=== PATIENT | male | born 1970 | race Caucasian/White ===

== ENCOUNTER 2017-01-28 10:32 | Inpatient (IN) | payer OTHER ==
[~2017-01-28] VITALS: Ht 165.1 cm; Wt 63.0 kg
[2017-01-28] VITALS (11 sets, daily range): BP systolic 79–120
--- NOTE | 2017-01-28 10:35 | NUR ---
Arrived via BLS ambulance from [facility] for desaturation to 80% on RA after vomiting. SNF staff suspects aspiration. Patient is also noted to have a right femoral central line in place in SNF. Patient is poorly verbal however this is his baseline. Placed in room 3. Placed on monitoring specialist, blood pressure machine and pulse oximeter. To gown for exam. Side rails up. Report given to Sindy MATA.
--- NOTE | 2017-01-28 10:40 | NUR ---
PATIENT NON-VERBAL.BREATHING EVEN AND UNLABORED WITH O2 AT 6L/M VIA NASAL CANNULA;O2 SAT=84%.NO SIGNS AND SYMPTOMS OF PAIN OR DISCOMFORT.NOTED WITH BILATERAL RHONCHI.AFEBRILE
--- NOTE | 2017-01-28 10:41 | NUR ---
ER at bedside examining patient.
[2017-01-28] MEDS ORDERED: IPRATROPIUM/ALBUTEROL SULFATE 3 ML AMPUL.NEB INH ONE (10:45)
[2017-01-28] MEDS ORDERED: methylPREDNISolone SOD SUCC/PF 62.5 MG/ML VIAL IVP ONE (10:45)
[2017-01-28] MEDS ORDERED: PIPERACILLIN/TAZO 3.38 GM in D5W 50 ML IV ONE (10:45)
[2017-01-28] MEDS ORDERED: NS 1000 ML BAG IV ONE (10:45)
[2017-01-28] MEDS ORDERED: PIPERACILLIN/TAZOBACTAM 3.375 GM/VIAL (ZOSYN) IV ONE (11:02)
[2017-01-28 11:22] LABS: CALCIUM 9.1 mg/dL (8.4-11.0); POTASSIUM 5.4 mmol/L (3.5-5.1)
[2017-01-28 11:22] LABS: HEMOGLOBIN 7.9 g/dL (14.0-18.0); LYMPHOCYTES # (AUTO) 1.4 K/uL (1.0-5.5)
[2017-01-28 11:26] LABS: MEAN CORPUSCULAR HEMOGLOBIN 29 pg (27-31); MEAN CORPUSCULAR HGB CONC 33 % (32-36); MEAN CORPUSCULAR VOLUME 88 fL (79.0-98.0); PROTHROMBIN TIME 10.8 SECS (9.5-12.5)
[2017-01-28 11:30] LABS: HEMATOCRIT 23.8 % (36-54); RED CELL DISTRIBUTION WIDTH 15.2 % (9.0-15.0)
[2017-01-28] MEDS ORDERED: ONDANSETRON HCL 4 MG/2 ML VIAL IVP ONE (11:30)
[2017-01-28 11:31] LABS: BASOPHILS # (AUTO) 0.3 K/uL (0.0-0.2); BASOPHILS % (AUTO) 1.5 % (0.0-2.0); EOSINOPHILS # (AUTO) 0.8 K/uL (0.0-0.4); EOSINOPHILS % (AUTO) 4.3 % (0.0-4.0); LYMPHOCYTES % (AUTO) 7.7 % (20.5-51.5); MONOCYTES # (AUTO) 0.6 K/uL (0.0-1.0); MONOCYTES % (AUTO) 3.1 % (1.7-9.3); NEUTROPHILS # (AUTO) 14.9 K/uL (1.8-7.7); NEUTROPHILS % (AUTO) 83.4 % (40.0-70.0); PLATELET COUNT (AUTO) 318 K/uL (130-430)
[2017-01-28 11:31] LABS: ALBUMIN 2.2 g/dL (3.4-4.8); TOTAL BILIRUBIN 0.4 mg/dL (0.0-1.0); TOTAL PROTEIN, SERUM 7.5 g/dL (6.4-8.3)
[2017-01-28] MEDS ORDERED: ONDANSETRON HCL 4 MG/2 ML VIAL ONE (11:37)
--- NOTE | 2017-01-28 11:55 | NUR ---
PATIENT VOMITED;VOMITUS IS YELLOWISH IN COLOR;MODERATE AMOUNT;MD MADE AWARE
--- NOTE | 2017-01-28 12:00 | NUR ---
# 16 FR Orr catheter with use of sterile technique. Immediate return of 150 cc CLOUDY YELLOW urine noted. Bedside drainage bag placed below level of bladder. Urine sample collected and sent to lab. Pt tolerated procedure WELL.
--- NOTE | 2017-01-28 12:25 | NUR ---
RT AT BEDSIDE FOR BREATHING TREATMENT
[2017-01-28 12:58] LABS: BILIRUBIN,URINE NEGATIVE (NEGATIVE); BLOOD, URINE NEGATIVE (NEGATIVE); CLARITY/URINE HAZY (CLEAR); COLOR,URINE YELLOW (YELLOW); GLUCOSE,URINE NEGATIVE (NEGATIVE); KETONES,URINE NEGATIVE (NEGATIVE); LEUKOCYTE ESTERASE ,URINE 1+ (NEGATIVE); NITRITE, URINE NEGATIVE (NEGATIVE); PROTEIN URINE 1+ (NEGATIVE); UROBILINOGEN,URINE 0.2 (0.2-1.0)
--- NOTE | 2017-01-28 13:05 | NUR ---
Transfer to ICU 4 via ACLS protocol. Licensed nurse present. IV present no signs or symptoms of infiltration.
[2017-01-28 13:13] LABS: RBC,URINE 0-3 /HPF (0-3)
[2017-01-28 13:14] LABS: BACTERIA,URINE MANY /HPF (None Seen); FINE GRANULAR CASTS,URINE 0-10 /LPF (None Seen); MUCUS,URINE None Seen /LPF (None Seen)
--- NOTE | 2017-01-28 13:26 | NUR ---
consult for dr. sarmiento called (dr. pimentel mergers and acquisitions consultant) spoke to ailyn dialed [phone] vivas called (dr. da silva mergers and acquisitions consultant) spoke to ailyn dialed [phone]
[2017-01-28] MEDS: NACL 0.9% 1,000 ML IV SCH ×2 (13:37→17:48)
--- NOTE | 2017-01-28 14:00 | NUR ---
assumed care: report given by savita icu nurse.with a diagnoses of septic shock. received patient non responsive,non verbal and no opening of eyes noted.patient snoring. room air,no distress. on panel monitor. ns on going at left forearm intact. with gtube clamped in placed. with russ draining to cloudy yellow urine. with bilateral heel protector on. right groin dressing soaked with blood,no active bleeding noted. continue to monitor per icu protocol.
--- NOTE | 2017-01-28 14:10 | NUR ---
lactic acid: second lactic acid drawn per protocol.
[2017-01-28] MEDS ORDERED: ACETAMINOPHEN 650 MG/20.3 ML UDC GT PRN (14:15)
[2017-01-28] MEDS ORDERED: IPRATROPIUM/ALBUTEROL SULFATE 3 ML AMPUL.NEB INH PRN (14:15)
[2017-01-28] MEDS ORDERED: SODIUM POLYSTYRENE SULFONATE 15 GM/60 ML UDBTL RC ONE (14:15)
--- NOTE | 2017-01-28 14:27 | NUR ---
consult for called (dr. og senior telecommunications engineer) spoke to ailyn dialed [phone]
[2017-01-28] MEDS ORDERED: GLUCOSE 15 GM GEL (in 37.5 GM TUBE) PO PRN ×2 (14:45)
[2017-01-28] MEDS ORDERED: DEXTROSE 50%-WATER 50 ML DISP.SYRIN IVP PRN ×2 (14:45)
[2017-01-28 14:54] LABS: ABG TOTAL HEMOGLOBIN 8.6 G/dL (12.0-18.0); BLOOD GAS BASE EXCESS -2.7 mmol/L (-3.0-3.0); BLOOD GAS COHb% 0.3 % (0.5-1.5); BLOOD GAS HHB 6.1 % (0.0-6.0)
[2017-01-28 15:13] LABS: FREE T4 (FREE THYROXINE) 0.8 ng/dL (0.6-1.6); THYROID STIMULATING HORMONE 5.55 uIu/mL (0.34-4.82)
[2017-01-28] MEDS: IPRATROPIUM/ALBUTEROL SULFATE 3 ML AMPUL.NEB INH SCH ×3 (15:32→23:22)
[2017-01-28] MEDS ORDERED: VANCOMYCIN HCL 1,250 MG in NS 250 ML IV SCH (16:00)
--- NOTE | 2017-01-28 16:09 | NUR ---
CARE NOTES: PATIENT FULLY AWAKE THIS TIME. ABLE TO MOVE LEFT ARM ,PATIENT HARD TO SPEAK.NOT ABLE TO UNDERSTAND.
--- NOTE | 2017-01-28 16:10 | NUR ---
PHOTOS: CLEANSED NS LEFT HEEL,RIGHT ANKLE,SACRAL WOUND.SACRAL AND LEFT HEEL OPTIFOAM APPLIED. PHOTOS TAKEN, ATTACHED TO CHART.WCN TO EVAL PER WOUND PROTOCOL.
[2017-01-28] MEDS ORDERED: COMMUNICATION ORDER XX ONE ×3 (17:45→20:15)
[2017-01-28] MEDS: PIPERACILLIN/TAZO 2.25G/DEX-IS 50 ML IV SCH ×2 (17:55→23:50)
[2017-01-28] MEDS ORDERED: SODIUM POLYSTYRENE SULFONATE 15 GM/60 ML UDBTL GT SCH (18:00)
[2017-01-28] MEDS: INSULIN REGULAR, HUMAN 100 UNITS/ML, 10 ML VIAL (novoLIN R) SUBCUT PRN ×3 (18:04→23:55)
--- NOTE | 2017-01-28 18:50 | NUR ---
rn rounding: time out with piccline nurse done.piccline placement done as ordered. stat potable chest x-ray ordered for piccline placement after.
--- NOTE | 2017-01-28 19:20 | NUR ---
end of shift: endorsed to incoming night nurse,patient awake and oriented x2,with slurred speech. still for abdominal ultrasound.keep patient npo ,hold tube feeds until test is done.stable.
--- NOTE | 2017-01-28 19:30 | NUR ---
Initial Assessment Initial assessment done after report was received from day shift nurse. Pt is awake and oriented to his name only. Speech is garbled. skin is warm and dry to touch. No signs or symptoms of hypoglycemia or hyperglycemia noted. G Tube is clamped and residual zero. G Tube feeding to be started after US of Abdomen is done. Orr cath to gravity drainage noted with clear yellowish urine. No acute distress noted. IVF of NS is infusing well in LFA at 500ml/hr without any signs of infiltration. PICC double lumens noted in MERLE with the dressing dry and intact.
[2017-01-28 19:52] LABS: CALCIUM 8.2 mg/dL (8.4-11.0); CREATININE 2.55 mg/dL (0.55-1.30); POTASSIUM 5.4 mmol/L (3.5-5.1)
--- NOTE | 2017-01-28 20:00 | NUR ---
Abdominal US Being performed at the bedside.
--- NOTE | 2017-01-28 20:21 | NUR ---
Critical Blood Glucose Regular insulin 12 units given SQ as ordered by Dr. Mujica for lab blood glucose of 418. Dr. Mujica was also informed of Critical BUN of 113. stated he will input some orders from home.
[2017-01-28] MEDS: 0.45% NACL 1,000 ML IV SCH (20:32)
--- NOTE | 2017-01-28 20:32 | NUR ---
PICC Line Usage IVF of 1/2 NS was started via MERLE PICC at 150ml/hr utilizing new IV tubing. All old peripheral IV tubings were discarded.
[2017-01-28] MEDS: SODIUM POLYSTYRENE SULFONATE 15 GM/60 ML UDBTL GT SCH (21:00)
--- NOTE | 2017-01-28 21:00 | NUR ---
G Tube Feeding G Tube residual zero. Ultrasound of abdomen already completed. G Tube feeding of NovaSource renal started at 45ml/hr.
[2017-01-28] MEDS: LACTOBACILLUS RHAMNOSUS GG 1 CAP CAPSULE GT SCH (21:12)
[2017-01-28] MEDS: HEPARIN SODIUM,PORCINE 5000 UNITS/ML VIAL SUBCUT SCH (21:13)
[2017-01-28] MEDS: LACTULOSE 20 GM/30 ML UDC GT SCH (21:16)
[2017-01-28 21:37] LABS: CHLORIDE,URINE RANDOM 41 mmol/L (55-125)
--- NOTE | 2017-01-28 22:00 | NUR ---
Rounds Resting comfortably in bed and tolerating GTF. Turned and repositioned.
[2017-01-29] VITALS (24 sets, daily range): BP systolic 86–111
--- NOTE | 2017-01-29 | NUR ---
Rounds Condition remains stable. Tolerating GTF well.
--- NOTE | 2017-01-29 02:00 | NUR ---
Rounds GTF and IVF infusing well. No acute distress noted.
[2017-01-29] MEDS: SODIUM POLYSTYRENE SULFONATE 15 GM/60 ML UDBTL GT SCH ×2 (02:29→09:00)
[2017-01-29] MEDS: 0.45% NACL 1,000 ML IV SCH ×4 (03:50→20:00)
--- NOTE | 2017-01-29 04:00 | NUR ---
Rounds Pt is awake and resting comfortably in bed. No acute distress noted. IVF and GT Feeding are infusing well.
[2017-01-29] MEDS: IPRATROPIUM/ALBUTEROL SULFATE 3 ML AMPUL.NEB INH SCH ×6 (04:04→23:17)
--- NOTE | 2017-01-29 05:30 | NUR ---
Wound care/Hygiene Pt had large amount of soft and formed brownish stools. Complete bed bath given with complete linen change. Sacral wound was cleansed with normal saline and pat dried. Wound has pinkish and healing areas. Small amount of serous drainage noted. Z guard applied and wound was covered with sacral Optifoam dressing.
[2017-01-29] MEDS: PIPERACILLIN/TAZO 2.25G/DEX-IS 50 ML IV SCH ×3 (05:51→18:08)
[2017-01-29] MEDS: INSULIN REGULAR, HUMAN 100 UNITS/ML, 10 ML VIAL (novoLIN R) SUBCUT PRN ×3 (05:55→11:51)
--- NOTE | 2017-01-29 05:55 | NUR ---
Blood Sugar Accuchecks 521 and 537. Skin remains warm and dry to touch. 12 units Regular Insulin given SQ and Dr. Mujica was paged.
--- NOTE | 2017-01-29 06:02 | NUR ---
New orders given by Dr. Mujica for AM Levemir Insulin.
[2017-01-29] MEDS ORDERED: COMMUNICATION ORDER XX ONE (06:15)
--- NOTE | 2017-01-29 06:35 | NUR ---
Levemir Insulin Order Levemir Insulin order not yet on pt's EMAR. Today's AM Levemir dose was ordered by to be given 30 minutes after 12 units Regular insulin was given for accuchecks of 521 and 537. Called [facility] since order was entered at 0602 and spoke with Riley. Per Riley, [facility] signed off at 0630 and [facility] should be contacted. Called [facility] and spoke with Zachary who stated he would input the order.
[2017-01-29 06:44] LABS: ALBUMIN 1.8 g/dL (3.4-4.8); PHOSPHORUS 4.1 mg/dL (2.7-4.5); POTASSIUM 3.9 mmol/L (3.5-5.1); TOTAL BILIRUBIN 0.4 mg/dL (0.0-1.0); TOTAL PROTEIN, SERUM 6.7 g/dL (6.4-8.3)
[2017-01-29 06:51] LABS: HEMATOCRIT 24.3 % (36-54); MEAN CORPUSCULAR HEMOGLOBIN 30 pg (27-31); MEAN CORPUSCULAR HGB CONC 33 % (32-36); MEAN CORPUSCULAR VOLUME 90 fL (79.0-98.0); PLATELET COUNT (AUTO) 277 K/uL (130-430); RED BLOOD CELL COUNT(AUTO) 2.71 MIL/uL (4.2-6.2); RED CELL DISTRIBUTION WIDTH 14.9 % (9.0-15.0)
--- NOTE | 2017-01-29 07:00 | NUR ---
Closing Note Pt is awake and resting quietly in bed. All pt's needs were attended to. Pt is tolerating GT Feeding well. Will endorse to day shift nurse.
[2017-01-29 07:09] LABS: CREATININE 2.37 mg/dL (0.55-1.30)
--- NOTE | 2017-01-29 07:35 | NUR ---
Charge nurse spoke with Dr. Mujica regarding elevated blood sugar. Orders left.
[2017-01-29 07:58] LABS: ATYPICAL LYMPHOCYTES % 0 % (0-0); BAND % (MANUAL) 4 % (0-6); BASOPHILS % (MANUAL) 0 % (0-2); EOSINOPHILS % (MANUAL) 0 % (0-7); LYMPHOCYTES % (MANUAL) 5 % (20-46); MONOCYTES % (MANUAL) 1 % (0-11)
--- NOTE | 2017-01-29 08:00 | NUR ---
Received pt alert and unable to make needs known. Looks around room. ST on monitor rate 120. BP stable. 02 2L NC in use . Lungs diminished bases. HOB up. Tolerating tube feeds via GT. Abd soft with bowel sounds. Left upper arm PICC line in place infusing IVF at 150cc/hr Heel lift boot in place. Pt has a foam dressing to buttocks. Orr cath with jessica urine in abg. Call out to Dr. Cobb regarding insulin coverage. Waiting for call back.
[2017-01-29 08:13] LABS: BLOOD GAS BASE EXCESS -9.7 mmol/L (-3.0-3.0)
[2017-01-29 08:14] LABS: ABG TOTAL HEMOGLOBIN 7.8 G/dL (12.0-18.0); BLOOD GAS COHb% 0.6 % (0.5-1.5); BLOOD GAS HHB 5.1 % (0.0-6.0)
--- NOTE | 2017-01-29 08:20 | NUR ---
Dr. Simmons in to see pt. Orders left. Regular insulin 12 u subcut given as ordered.
[2017-01-29] MEDS ORDERED: INSULIN NPH/REGULAR 70-30, 100 UNITS/ML, 10 ML VIAL SUBCUT SCH (08:30)
[2017-01-29] MEDS ORDERED: DOCUSATE SODIUM 100 MG CAPSULE PO PRN (08:45)
[2017-01-29] MEDS ORDERED: ACETAMINOPHEN 325 MG TABLET PO PRN (08:45)
[2017-01-29] MEDS ORDERED: MAGNESIUM SULFATE 50 ML IV PRN (08:45)
[2017-01-29] MEDS ORDERED: LORazepam 2 MG/ML VIAL IVP PRN (08:45)
[2017-01-29] MEDS ORDERED: ONDANSETRON HCL 4 MG/2 ML VIAL IVP PRN (08:45)
[2017-01-29] MEDS ORDERED: ZOLPIDEM TARTRATE 5 MG TABLET PO PRN (08:45)
[2017-01-29] MEDS: HEPARIN SODIUM,PORCINE 5000 UNITS/ML VIAL SUBCUT SCH ×2 (08:46→21:11)
[2017-01-29] MEDS: LACTULOSE 20 GM/30 ML UDC GT SCH ×2 (08:49→21:22)
[2017-01-29] MEDS: LACTOBACILLUS RHAMNOSUS GG 1 CAP CAPSULE GT SCH ×2 (08:51→21:22)
--- NOTE | 2017-01-29 09:01 | NUR ---
Nutrition Update Ritchie Scale 12 noted. Pt admitted for septic shock. Diet: Novasource Renal at 45 ml/hr, Free Water Flush: 100 ML Q6H via GT BMI: 23 kg/m2 RD to follow per nutrition care standards.
--- NOTE | 2017-01-29 09:13 | NUR ---
Pt having liquid brown stool x 3 in a row. Complete linen changed. All insulin given that was ordered by Dr. Cobb. Stool for c-diff sent.
[2017-01-29] MEDS ORDERED: ASPI81TA2 GT (10:03)
[2017-01-29] MEDS ORDERED: NA P118E RC (10:03)
[2017-01-29] MEDS ORDERED: MULT9LIQ6 GT (10:03)
[2017-01-29] MEDS ORDERED: LISI10TA GT (10:03)
[2017-01-29] MEDS ORDERED: HYDR-1115 GT (10:03)
[2017-01-29] MEDS ORDERED: INSU100V32 SUBCUT (10:03)
[2017-01-29] MEDS ORDERED: LEVO50TA8 GT (10:03)
[2017-01-29] MEDS ORDERED: AMLO5TAB4 GT (10:03)
[2017-01-29] MEDS ORDERED: DULR10 RC (10:03)
[2017-01-29] MEDS ORDERED: HYDR-1189 GT (10:03)
[2017-01-29] MEDS ORDERED: GLYB5TAB7 GT (10:03)
[2017-01-29] MEDS ORDERED: LIP80 GT (10:03)
[2017-01-29] MEDS ORDERED: ASCO500T20 GT (10:03)
[2017-01-29] MEDS ORDERED: INSU100V11 SQ (10:03)
[2017-01-29] MEDS ORDERED: MAGN400O4 GT (10:03)
[2017-01-29] MEDS ORDERED: METO25TA6 GT (10:03)
--- NOTE | 2017-01-29 11:37 | NUR ---
Dr. Cardenas in to see pt. Orders left. Made aware of accu check 507. Call out to Dr. Cobb. Pts mom at bedside and plan of care discussed with her.
--- NOTE | 2017-01-29 11:50 | NUR ---
Pt had another large liquid brown stool. Fidelina care done.
[2017-01-29] MEDS: metroNIDAZOLE 250 MG TABLET PO SCH ×3 (12:07→21:22)
--- NOTE | 2017-01-29 12:15 | NUR ---
Flagyl given via GT and GT occluded. Attempted to clear tube with soda and warm water unsuccessfully.
--- NOTE | 2017-01-29 12:30 | NUR ---
Dr Cobb notified of accu check 500 range. Endocrine consult ordered.
--- NOTE | 2017-01-29 13:00 | NUR ---
CHG CHG BATH GIVEN. VITALS REMAINED STABLE, 02 SAT 100% ON 2 L NC, NO SIGNS OF DISTRESS NOTED. PT LEFT WITH HOB ELEVATED, CALL LIGHT IN REACH, BED IN LOWEST POSITION. WILL CONTINUE TO MONITOR PT.
--- NOTE | 2017-01-29 13:30 | NUR ---
Mom at bedside. Plan of care update given.
[2017-01-29] MEDS ORDERED: INSULIN REGULAR, HUMAN 100 UNITS in NS 99 ML IV PRN ×4 (14:00→14:45)
--- NOTE | 2017-01-29 14:15 | NUR ---
Dr. Carranza and Dr. Vincent have declined endocrine consults. Will notifiy Dr. Cobb. Call out to Dr Lerner.
--- NOTE | 2017-01-29 14:40 | NUR ---
SPoke with Dr Lerner and she will do the consult but cannot come in until tomorrow. Report given. Orders left for insulin drip and labs.
[2017-01-29] MEDS ORDERED: DEXTROSE 50% JECT 50 ML DISP.SYRIN IVP PRN (14:45)
[2017-01-29] MEDS: INSULIN REGULAR, HUMAN 100 UNITS in NS 99 ML IV PRN ×2 (14:45)
--- NOTE | 2017-01-29 14:50 | NUR ---
Insulin drip started at 10 units/hr as ordered for accu check 507.
--- NOTE | 2017-01-29 16:00 | NUR ---
Insulin drip at 12 units/hr for accucheck above 400. Will continue to monitor pt. No N/V. BP stable. Remains tachypnic and with an elevated HR. No resp distress.
[2017-01-29 17:25] LABS: CALCIUM 8.1 mg/dL (8.4-11.0); CREATININE 2.69 mg/dL (0.55-1.30)
[2017-01-29 17:33] LABS: POTASSIUM 2.9 mmol/L (3.5-5.1)
--- NOTE | 2017-01-29 17:45 | NUR ---
Dr. Lerner made aware of K 2.9. Dr. Aguero in to see pt and to leave orders for K replacement.
[2017-01-29] MEDS ORDERED: KCL 40 mEq in 100 mL (PREMIX) 100 ML IV ONE (18:00)
[2017-01-29 18:10] LABS: PHOSPHORUS 2.6 mg/dL (2.7-4.5)
--- NOTE | 2017-01-29 18:15 | NUR ---
Wound care done to coccyx. Foam dressing applied. Pt sitting with HOB up afterwards and noted to be coughing. Nothing to suction in mouth with adelaidaur. Afebrile. HR remains elevated.
--- NOTE | 2017-01-29 20:00 | NUR ---
OPENS EYES SPON. ABLE TO FOCUS. ON O2 AT 2L/MIN. DENIES PAIN. POX 100%. TACHYPNEIC. EXTREMITIES CONTRACTED. WEN CATH PATENT DRAINING OLIGURIC CLOUDY YELLOW URINE. ST. GT FEEDING OFF, GT CLOGGED. LEFT UPPER ARM PICC LINE DRSG D/I. ON INSULIN DRIP AT 12 UNITS/HR. CONTACT ISOLATION OBSERVED. TURNED.
--- NOTE | 2017-01-29 20:15 | NUR ---
Report given to oncoming shift. K rider running.
--- NOTE | 2017-01-29 21:00 | NUR ---
ACCU-CHEK 297, INSULIN DRIP AT 6 UNITS/HR. HS CARE.
--- NOTE | 2017-01-29 21:30 | NUR ---
ABLE TO UNCLOG GT, GT FEEDING RESTARTED WITH NOVASOURCE RENAL AT 45CC/HR.
--- NOTE | 2017-01-29 22:00 | NUR ---
ACCU-CHEK 312, INSULIN DRIP AT 8 UNITS/HR. REPOSITIONED.
--- NOTE | 2017-01-29 23:00 | NUR ---
ACCU-CHEK 285, INSULIN DRIP AT 6 UNITS/HR.
[2017-01-30] VITALS (24 sets, daily range): BP systolic 92–155
--- NOTE | 2017-01-30 | NUR ---
RESIDUAL CHECK 0. ACCU-CHEK 281, INSULIN DRIP AT 6 UNITS/HR. UO OLIGURIC.
[2017-01-30] MEDS: PIPERACILLIN/TAZO 2.25G/DEX-IS 50 ML IV SCH ×2 (00:04→05:04)
[2017-01-30] MEDS: INSULIN REGULAR, HUMAN 100 UNITS in NS 99 ML IV PRN ×2 (00:36)
--- NOTE | 2017-01-30 01:00 | NUR ---
ACCU-CHEK 277, INSULIN DRIP AT 6 UNITS/HR.
--- NOTE | 2017-01-30 02:00 | NUR ---
ACCU-CHEK 290, INSULIN DRIP AT 6 UNITS/HR.
[2017-01-30] MEDS: 0.45% NACL 1,000 ML IV SCH (02:45)
--- NOTE | 2017-01-30 03:00 | NUR ---
ACCU-CHEK 260, INSULIN DRIP AT 6 UNITS/HR.
--- NOTE | 2017-01-30 04:00 | NUR ---
DOZES ON AND OFF. ACCU-CHEK 290, INSULIN DRIP AT 4 UNITS/HR. RESIDUAL CHECK 0. TURNED.
[2017-01-30] MEDS: IPRATROPIUM/ALBUTEROL SULFATE 3 ML AMPUL.NEB INH SCH ×6 (04:01→23:26)
--- NOTE | 2017-01-30 05:00 | NUR ---
1 MOD GELATINOUS STOOL DEFECATED, NARA-CARE RENDERED. PARTIAL LINEN CHANGE. AM CARE. DOES NOT ASSIST WITH TURNING. NEETU PROC WELL. ACCU-CHEK 273, INSULIN DRIP AT 6 UNITS/HR.
[2017-01-30] MEDS: metroNIDAZOLE 250 MG TABLET PO SCH (05:59)
--- NOTE | 2017-01-30 06:00 | NUR ---
ACCU-CHEK 275, INSULIN DRIP AT 6 UNITS/HR. TURNED. UO GOOD. REMAINS IN GUARDED CONDITION.
[2017-01-30 06:06] LABS: T4 (THYROXINE) 4.9 ug/dL (4.5-12.0)
[2017-01-30 06:27] LABS: CALCIUM 8.1 mg/dL (8.4-11.0); CREATININE 2.41 mg/dL (0.55-1.30); POTASSIUM 3.1 mmol/L (3.5-5.1)
[2017-01-30 06:30] LABS: MONOCYTES # (AUTO) 0.5 K/uL (0.0-1.0); MONOCYTES % (AUTO) 3.2 % (1.7-9.3); WHITE BLOOD COUNT (AUTO) 14.9 K/uL (4.8-10.8)
[2017-01-30 06:41] LABS: BASOPHILS % (AUTO) 0.3 % (0.0-2.0); EOSINOPHILS # (AUTO) 0.1 K/uL (0.0-0.4); LYMPHOCYTES % (AUTO) 6.8 % (20.5-51.5); MEAN CORPUSCULAR HEMOGLOBIN 29 pg (27-31); MEAN CORPUSCULAR HGB CONC 32 % (32-36); MEAN CORPUSCULAR VOLUME 89 fL (79.0-98.0); NEUTROPHILS # (AUTO) 13.3 K/uL (1.8-7.7); NEUTROPHILS % (AUTO) 88.7 % (40.0-70.0); PLATELET COUNT (AUTO) 259 K/uL (130-430); RED BLOOD CELL COUNT(AUTO) 2.34 MIL/uL (4.2-6.2); RED CELL DISTRIBUTION WIDTH 15.2 % (9.0-15.0)
--- NOTE | 2017-01-30 06:50 | NUR ---
DR SWANSON NOTIFIED OF H/H 6.7/ 20.9, ORDERED TO TRANSFUSE 2 UNITS PRBC. ACCU-CHEK 277, INSULIN DRIP LEFT AT 6 UNITS/HR.
[2017-01-30 06:51] LABS: HEMOGLOBIN 6.7 g/dL (14.0-18.0)
[2017-01-30 06:52] LABS: HEMATOCRIT 20.9 % (36-54)
--- NOTE | 2017-01-30 07:15 | NUR ---
ASSUMPTION OF CARE RECEIVED REPORT FROM ADOLFO DIAZ. PT IN BED WITH EYES CLOSED. VITAL SIGNS STABLE, O2 100% ON 2L NC. SINUS TACHYCARDIA ON MONITOR. NO SIGNS OF DISTRESS NOTED. NOVASOURCE RENAL TUBE FEEDING AT 45 ML/HR THROUGH GT. INSULIN DRIP AT 6 UNITS/HR PER INSULIN DRIP PROTOCOL. WILL CONTINUE TO MONITOR PT.
--- NOTE | 2017-01-30 08:00 | NUR ---
PT VOMITING RT BEGAN BREATHING TREATMENT, PT BEGAN TO VOMIT MODERATE AMOUNT OF LIQUID THAT LOOKED LIKE TUBE FEEDING. TUBE FEEDING PUT ON HOLD. HOB ELEVATED. O2 SAT REMAINS 100% ON 2 L NC. WILL CONTINUE TO MONITOR.
[2017-01-30] MEDS: LACTOBACILLUS RHAMNOSUS GG 1 CAP CAPSULE GT SCH ×3 (08:17→21:37)
[2017-01-30] MEDS: POTASSIUM CHLORIDE 10 MEQ TAB.PRT.SR PO PRN (08:18)
--- NOTE | 2017-01-30 08:18 | NUR ---
ZOFRAN PT GIVEN ZOFRAN 4MG IVP FOR N/V. WILL MONITOR FOR PT RESPONSE.
[2017-01-30] MEDS: LACTULOSE 20 GM/30 ML UDC GT SCH ×2 (08:21→21:37)
[2017-01-30] MEDS: HEPARIN SODIUM,PORCINE 5000 UNITS/ML VIAL SUBCUT SCH ×2 (08:21→21:50)
[2017-01-30] MEDS ORDERED: POTASSIUM CHLORIDE 40 MEQ, LIDOCAINE JECT 2% PF 100 MG 50 MG in NS 250 ML IV ONE (08:45)
[2017-01-30] MEDS: VANCOMYCIN HCL 125 MG CAPSULE PO SCH ×4 (09:00→21:56)
--- NOTE | 2017-01-30 09:00 | NUR ---
NGT. ATTEMPTED TO INSERT NGT TO EITHER SIDE OF NARIS, BUT WITH RESISTANCE. PT DIAPHORETIC, COUGHING MOSTLY DURING NURSING CARE.
[2017-01-30 09:01] LABS: AMYLASE 29 U/L (0-100); LIPASE 204 U/L (73-393)
--- NOTE | 2017-01-30 10:22 | NUR ---
BLOOD TRANSFUSION INITIATION Consent signed per TELEPHONE CALL TO PT'S MOTHER, DEAN agreeing to administration of blood. Blood has been type and crossmatched. Blood sent from blood bank. Information on unit of blood checked against patient wristband at bedside by two nurses. All information matches. Patient or responsible alliance party informed of potential complications associated with blood transfusion. Informed of possible transfusion reaction symptoms. Aware of need to notify nurse at once of itching, shortness of breath, flushing, feeling of impending doom, or other symptoms not previously present. Vital signs taken within 5 minutes prior to initiation of transfusion. VITAL SIGNS ON INITIATION FOLLOWS: TEMPERATURE 98.5F, HR 110, RESPIRATIONS 35, BP 107/51. RN will remain with patient for first 15 minutes of transfusion at which time vital signs will be re-assessed. Addendum: 01/30/17 at 1428 by Sondra Sosa RN INITIATED AT 100 ML/HR.
--- NOTE | 2017-01-30 10:37 | NUR ---
BLOOD TRANSFUSION CURRENT VITAL SIGNS FOLLOWS: TEMPERATURE 99.2 F, HR 111, RESPIRATIONS 38, BP 95/46. 02 SAT 100% ON 2 L NC. NO SIGNS OF DISTRESS NOTED. WILL CONTINUE TO MONITOR PT THROUGHOUT ENTIRETY OF BLOOD TRANSFUSION.
--- NOTE | 2017-01-30 13:00 | NUR ---
HERE DR ARTEAGA HERE TO EVALUATE PT. NEW ORDERS RECEIVED FOR MANAGEMENT OF PT'S BLOOD GLUCOSE.
--- NOTE | 2017-01-30 13:32 | NUR ---
BLOOD TRANSFUSION SECOND UNIT OF PRBC INITIATION. Consent signed per TELEPHONE CALL TO PT'S MOTHER DEAN agreeing to administration of blood. Blood has been type and crossmatched. Blood sent from blood bank. Information on unit of blood checked against patient wristband at bedside by two nurses. All information matches. Patient or responsible democrat informed of potential complications associated with blood transfusion. Informed of possible transfusion reaction symptoms. Aware of need to notify nurse at once of itching, shortness of breath, flushing, feeling of impending doom, or other symptoms not previously present. CURRENT VITALS UPON INITIATION: TEMPERATURE 99.3F, HR 109, RESPIRATIONS 32, BP 138/70. RN will remain with patient for first 15 minutes of transfusion at which time vital signs will be re-assessed.
--- NOTE | 2017-01-30 13:47 | NUR ---
BLOOD TRANSFUSION VITALS 15MIN AFTER INITIATION OF SECOND UNIT PRBC FOLLOWS: TEMP 99.3F, HR 108, RESPIRATIONS 31, BP 130/70. NO SIGNS OF DISTRESS OR A REACTION NOTED. PT'S MOTHER IS AT BEDSIDE. WILL CONTINUE TO MONITOR PT THROUGHOUT ADMINISTRATION OF BLOOD PRODUCT.
--- NOTE | 2017-01-30 14:30 | NUR ---
SKIN CARE. WOUND CARE NURSE CAME AND EVALUATED SKIN PROBLEMS ON RIGHT EAR, SACRAL AREA, LOWER EXTREMITIES. SKIN TREATMENT FOLLOWED.
--- NOTE | 2017-01-30 14:30 | NUR ---
WOUND EVALUATION: Late note for 1430 secondary to patient care. Wound Consult received from Dr. Mujica. Thank you, Dr. Mujica, for the consult. Patient received in a [place] Bed with a mattress, awake, alert, and oriented. Patient is unable to turn independently. Ritchie Score is a 12. 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 Recent Labs: WBC 8.2, RBC 3.67, hemoglobin 11.1, hematocrit 33.5, potassium 2.8, chloride 97, albumin 2.0, d-dimer 782. Intrinsic factors that delay wound healing: Diabetes mellitus. Extrinsic factors that delay wound healing: Decreased mobility. Microbiology: Blood culture 2 in progress. MRSA screen results negative. Body fluid culture in progress. Scar tissue present on sacral, buttocks, right heel, and right lateral malleolus areas. Wound Assessment: 1) left sacral area: Stage II pressure ulcer, present on admission. Wound bed is 100% red tissue. No odor, scant sanguineous drainage. Measures 1.4 cm x 1.5 cm. 2) left sacral area, medial to wound 1): Small wound, present on admission. Wound bed is 100% pink tissue. No odor, no drainage. Measures 0.3 cm x 0.3 cm. 3) sacral area: Pressure ulcer, present on admission. Wound bed is 70% pink tissue, 30% yellow tissue. No odor, no drainage. Measures 1.2 cm x 0.4 cm x 0.2 cm. Recommend: Cleanse wounds with normal saline. Put moisture barrier cream onto christina-wounds. Put hydrogel onto wound beds. Cover with sacral foam dressing. Perform wound care daily, and as needed for dressing soiling or dislodgment. 4) left lateral lower extremity: Chronic wound, present on admission. Wound bed is 90% yellow eschar, 10% black eschar. Dry, stable. Measures 5.0 cm x 2.2 cm. Recommend: Cover site with a foam dressing. Offload site at all times so that it does not touch bed, other body parts, or any other areas. 5) left heel: Chronic unstageable pressure ulcer, present on admission. Wound bed is 95% black eschar, 5% yellow slough. No odor, no drainage. Dry, stable. Periwound and surrounding tissue have red and pink colored tissue. Recommend: Cover heel with foam dressing. Elevate, offload and flow bilateral heels with pillows at all times. Do not allow heels to come in touch with bed or other surfaces at any time. 6) Right ear: Chronic wound, present on admission. Wound bed is 100% black eschar. No odor, no drainage. Measures 0.3 cm x 0.3 cm. 7) Right ear, inferior to site 6): Chronic wound, present on admission. Wound bed is 100% black eschar. No odor, no drainage. Measures 0.4 cm x 0.4 cm. Recommend: Cover sites with a foam dressing. Offload ear at all times so that ear does not touch bed, pillow, body parts, or any other areas. 8) left lateral malleolus: Dark colored spot, present on admission. No odor, no drainage. 9) left foot, lateral border, posterior to fifth metatarsal head: Chronic wound, present on admission. Wound bed is 100% black eschar. No odor, no drainage. Dry, stable. Measures 1.0 cm x 0.5 cm. Recommend: Cover sites with a foam dressing. Offload sites at all times so that they do not touch bed, other body parts, or any other areas. 10) right lower buttock: Hard skin colored keloid, present on admission. No odor, no drainage. Recommend: Reposition patient [id number] only every 2 hours. Also recommend: Reposition patient every 2 hours with pillow support and off-load pressure areas with pillows for pressure re-distribution. Offload, elevate and float bilateral heels with pillows. Perform skin care and monitor skin integrity Q shift. Use moisture barrier cream on buttocks and other moisture susceptible areas QID and as needed for soiling. Place patient on a low air-loss mattress. Recommend surgical consult.
[2017-01-30] MEDS: D5/0.45 NS 1,000 ML IV SCH (14:39)
[2017-01-30] MEDS: metroNIDAZOLE 250 mg/NS 50 ML IV SCH ×2 (14:39→21:51)
--- NOTE | 2017-01-30 15:00 | NUR ---
STOOL SAMPLE. PT HAD MODERATE AMOUNT OF LIGHT YELLOWISH JELL- LIKE BOWEL MOVEMENT, HYGIENE RENDERED. SAMPLE COLLECTED AND SENT TO LAB FOR OCCULT BLOOD TEST.
--- NOTE | 2017-01-30 16:27 | NUR ---
BLOOD TRANSFUSION SECOND UNIT PRBC TRANSFUSION COMPLETED. VITAL SIGNS AT END OF TRANSFUSION FOLLOWS: TEMP 98.3 F, HR 114, RESPIRATIONS 30, BP 142/70. NO SIGNS OF DISTRESS OR REACTION WERE OBSERVED THROUGHOUT THE TRANSFUSION. WILL CONTINUE TO MONITOR PT.
[2017-01-30] MEDS ORDERED: GASTROGRAFIN 120 ML ONE (16:45)
[2017-01-30] MEDS: INSULIN ASPART 100 UNITS/ML, 10 ML VIAL (NovoLOG) SUBCUT PRN ×2 (17:14→22:08)
--- NOTE | 2017-01-30 17:30 | NUR ---
TEST. RADIOLOGY STAFF HERE, GASTROGRAFFIN DYE INJECTED INTO GTUBE PORT.
--- NOTE | 2017-01-30 19:32 | NUR ---
ENDORSEMENT OF CARE BEDSIDE REPORT GIVEN TO ADOLFO DIAZ USING SBAR APPROACH.
--- NOTE | 2017-01-30 20:00 | NUR ---
AWAKE. 0N O2 AT 2L/MIN/NC. KUB , GT IN STOMACH. GT FEEDING WITH NOVASOURCE RENAL STARTED AT 45CC/HR. WEN CATH PATENT DRAINING CLOUDY YELLOW URINE TO GRAVITY. MERLE PICC LINE DRSG D/I. ST. 1 LARGE SOFT WATERY BROWN STOOL DEFECATED. CLEANED. PER-CARE. PARTIAL LINEN CHANGE DONE. DOES NOT ASSIST WITH TURNING. PARTIAL LINEN CHANGE. NEETU WELL. CONTACT ISOLATION OBSERVED.
--- NOTE | 2017-01-30 21:00 | NUR ---
ACCU-CHEK 248, 2 UNITS NOVOLOG INSULIN SQ GIVEN.
[2017-01-30] MEDS: LINEZOLID 300 ML IV SCH (21:38)
--- NOTE | 2017-01-30 22:00 | NUR ---
HS CARE. TURNED AND REPOSITIONED.
[2017-01-31] VITALS (21 sets, daily range): BP systolic 108–159
--- NOTE | 2017-01-31 | NUR ---
1 LARGE WATERY BROWN STOOL DEFECATED. CLEANED. NARA-CARE DONE. CHG BATH GIVEN. ORAL CARE RENDERED. WEN CARE, BACK CARE AND SKIN CARE DONE. Z-GUARD APPLIED TO PERINEUM. PARTIAL LINEN CHANGE. DOES NOT ASSIST WITH TURNING. NEETU PROC WELL. RESIDUAL CHEK 50CC. GT FLUSHED WITH 100CC H2O.
--- NOTE | 2017-01-31 01:00 | NUR ---
ACCU-CHEK 295, 4 UNITS NOVOLOG INSULIN SQ GIVEN.
[2017-01-31] MEDS: INSULIN ASPART 100 UNITS/ML, 10 ML VIAL (NovoLOG) SUBCUT PRN ×4 (01:16→21:17)
[2017-01-31] MEDS: D5/0.45 NS 1,000 ML IV SCH ×2 (01:38→18:30)
--- NOTE | 2017-01-31 04:00 | NUR ---
RESIDUAL 10CC. VSS. TURNED.
[2017-01-31] MEDS: IPRATROPIUM/ALBUTEROL SULFATE 3 ML AMPUL.NEB INH SCH ×5 (04:11→20:02)
--- NOTE | 2017-01-31 05:00 | NUR ---
1 LARGE WATERY BROWN STOOL DEFECATED, NARA-CARE. SKIN CARE, BACK CARE, WEN CARE GIVEN. PARTIAL LINEN CHANGE. DOES NOT ASSIST WITH TURNING. NEETU WELL. SUCTIONED MOUTH WITH YANKAUER. ACCU-CHEK 263, 4 UNITS NOVOLOG INSULIN SQ GIVEN.
[2017-01-31] MEDS: metroNIDAZOLE 250 mg/NS 50 ML IV SCH ×3 (05:16→23:00)
--- NOTE | 2017-01-31 06:00 | NUR ---
UO GOOD. GT FLUSHED WITH 100CC H2O. REPOSITIONED. REMAINS IN GUARDED CONDITION.
[2017-01-31 06:24] LABS: BASOPHILS % (AUTO) 0.3 % (0.0-2.0); EOSINOPHILS # (AUTO) 1.1 K/uL (0.0-0.4); EOSINOPHILS % (AUTO) 8.5 % (0.0-4.0); HEMATOCRIT 35.7 % (36-54); HEMOGLOBIN 11.9 g/dL (14.0-18.0); LYMPHOCYTES % (AUTO) 7.4 % (20.5-51.5); MEAN CORPUSCULAR HEMOGLOBIN 29 pg (27-31); MEAN CORPUSCULAR HGB CONC 33 % (32-36); MEAN CORPUSCULAR VOLUME 88 fL (79.0-98.0); MONOCYTES # (AUTO) 0.6 K/uL (0.0-1.0); MONOCYTES % (AUTO) 4.3 % (1.7-9.3); NEUTROPHILS # (AUTO) 10.4 K/uL (1.8-7.7); NEUTROPHILS % (AUTO) 79.5 % (40.0-70.0); PLATELET COUNT (AUTO) 258 K/uL (130-430); RED BLOOD CELL COUNT(AUTO) 4.06 MIL/uL (4.2-6.2); RED CELL DISTRIBUTION WIDTH 14.4 % (9.0-15.0); WHITE BLOOD COUNT (AUTO) 13.1 K/uL (4.8-10.8)
[2017-01-31 06:37] LABS: CALCIUM 8.3 mg/dL (8.4-11.0); CREATININE 1.45 mg/dL (0.55-1.30); POTASSIUM 3.3 mmol/L (3.5-5.1)
--- NOTE | 2017-01-31 07:45 | NUR ---
BEGINNING OF SHIFT ASSESSMENT Received patient eyes open, alert x 1, name only, slow to respond, communicated with nurse using simple, one word responses. Clear lung sounds heard through out. Patient on 2L NC, tolerating well. The patient remains sinus tach on monitor, HR 110 at this time. He is receiving D51/2NS at the rate of 100mls/hr to right upper arm PICC, patent, flushing with positive blood return, dressing clean,dry and intact. Gtube placement verified via auscultation, 10 cc of residual noted. Orr draining to gravity, clear, yellow urine noted. No signs of distress, vss, sob, chills, chest pain per patient, none noted at this time. Bed in locked, lowest position, call light within easy reach, upper side rails x 2 up. Patient on contact isolation precautions related to c-diff infection. Will continue to monitor closely.
[2017-01-31 08:05] LABS: CALCIUM 8.2 mg/dL (8.4-11.0); CREATININE 1.35 mg/dL (0.55-1.30); POTASSIUM 3.5 mmol/L (3.5-5.1)
--- NOTE | 2017-01-31 08:45 | NUR ---
ROUNDING Dr. RED MARK at bedside examining patient, updated on condition. Received new orders.
--- NOTE | 2017-01-31 08:50 | NUR ---
IV FLUID RATE CHANGE Per Dr. Cardenas orders, IVF rate changed to 60 mls/hr.
--- NOTE | 2017-01-31 09:00 | NUR ---
MD ROUNDING: Dr. Reza MARK at bedside examining patient, updated on patient condition. Continue to follow clinical plan.
[2017-01-31] MEDS: LINEZOLID 300 ML IV SCH ×2 (09:03→21:07)
[2017-01-31] MEDS: LACTULOSE 20 GM/30 ML UDC GT SCH ×2 (09:04→21:11)
[2017-01-31] MEDS: LACTOBACILLUS RHAMNOSUS GG 1 CAP CAPSULE GT SCH ×2 (09:04→21:10)
--- NOTE | 2017-01-31 09:10 | NUR ---
Nutrition Note Nutrition Consult (Wounds) received 01/30/17 3934. Pt was seen and assessed by RD on 01/31/17. Please refer to Nutrition Assessment for details. RD to continue to follow per nutrition care standards.
[2017-01-31] MEDS: HEPARIN SODIUM,PORCINE 5000 UNITS/ML VIAL SUBCUT SCH ×2 (09:23→21:18)
[2017-01-31] MEDS: VANCOMYCIN HCL 125 MG CAPSULE PO SCH ×4 (09:24→21:10)
--- NOTE | 2017-01-31 10:45 | NUR ---
ROUNDING DR. Elder MARK at bedside examining patient, updated on patient condition. Continue to follow clinical pathway.
[2017-01-31 11:18] LABS: HEMOGLOBIN A1C 9.9 % (4.8-5.6)
--- NOTE | 2017-01-31 12:00 | NUR ---
PT UPDATE Patient awake, alert, mother at bedside speaking with patient. Patient turned and repositioned. No signs of distress, sob, chills, chest pain per patient, none noted at this time. Will continue to monitor.
--- NOTE | 2017-01-31 12:20 | NUR ---
Glucose Finger stick 298 mg/dl, 4 units of regular insulin given per sliding scale protocol. Addendum: 01/31/17 at 1709 by Jenaro Carrion RN Correction, 4 units of novalog/aspart insulin given as coverage per sliding scale protocol. Medication unable to scan, pharmacy made aware. Patient verified using three identifiers. Second nurse, ADOLFO Callahan verified 4 units of novalog/aspart insulin given.
--- NOTE | 2017-01-31 13:20 | NUR ---
PT CARE: Large BM x 1, loose stool, cleaned, linen changed, turned and repositioned. Patient tolerated well.
--- NOTE | 2017-01-31 15:30 | NUR ---
OCCULT BLOOD SAMPLE Sample collected, sent to lab.
--- NOTE | 2017-01-31 17:05 | NUR ---
PT CARE: Large loose Bm x 1, cleaned, linen changed. Patient turned and repositioned, tolerated well.
--- NOTE | 2017-01-31 17:40 | NUR ---
TRANSFER Patient transferred via gurney using ALCS protocol with two licensed staff present to Tele room 116-A, bedside report given to ADOLFO Yung. All belongings sent with patient. Patient tolerated well, no signs of distress, vss, sob, chest pain, fever or chills per patient, none noted. Endorsed care to ADOLFO Yung.
--- NOTE | 2017-01-31 17:43 | NUR ---
RECEIVED PATIENT TRANSFER FROM ICU, PT STABLE, AWAKE, ABLE TO MAKE NEEDS KNOWN, NO S/S OF DISTRESS OR PAIN, UNDER THE CARE OF DR SWANSON, PT MADE COMFORTABLE, SETTLED IN, CALL LIGHT WITHIN REACH, SAFETY AND ISOLATION PRECAUTIONS IN PLACE, WILL ADMIT PATIENT
--- NOTE | 2017-01-31 19:00 | NUR ---
CLOSING NOTE PT LAYING IN SEMI FOWLERS POSITION, AWAKE, ALERT, NASAL CANULA IN PLACE WITH O2 AT 2L, IV FLUIDS INFUSING MERLE PICC AT ORDERED RATE IV TO LFA INTACT, SALINE LOCKED, GTUBE FEEDING IN PLACE AND INFUSING AT ORDERED RATE, PT TOLERATING WELL, WEN CATHETER IN PLACE AND DRAINING YELLOW URINE TO GRAVITY, DRESSING TO BILATERAL LOWER EXTREMITIES CLEAN DRY AND INTACT, DRESSING TO RIGHT EAR CDI, SAFETY AND ISOLATION PRECAUTIONS MAINTAINED, BED IN LOW POSITION AND LOCKED, BED ALARM ON, CALL LIGHT WITHIN REACH, WILL GIVE REPORT TO FOLLOWING SHIFT
--- NOTE | 2017-01-31 20:00 | NUR ---
Initial Assessment Pt was received lying in bed awake and oriented to his name only. No verbal response noted at this time. No acute distress noted. O2 sat is 100% on O2 at 2L/min via NC. Skin is warm and dry to touch. No signs or symptoms of hypoglycemia or hyperglycemia noted. G Tube Feeding of NovaSource Renal is infusing well at 45ml/hr with residual of 150ml. GT Feeding stopped and residual will be rechecked in 1 hour. HOB is elevated to prevent aspiration. Orr cath to gravity drainage noted with clear yellowish urine. IVF of D51/2NS is infusing well via MERLE PICC at 60ml/hr. PICC dressing is dry and intact. Fall, Safety and Contact Isolation precautions are in place. Will continue to monitor pt.
--- NOTE | 2017-01-31 21:00 | NUR ---
G Tube Residual Recheck G tube residual 25ml and GT Feeding resumed at 45ml/hr. HOB elevated 45 degrees to prevent aspiration.
--- NOTE | 2017-01-31 21:17 | NUR ---
Blood Sugar Accucheck 215 and 2 units NovoLog Insulin given SQ. Skin remains warm and dry to touch.
--- NOTE | 2017-01-31 21:40 | NUR ---
Admin Dilaudid and Zofran Admin Dilaudid prn for pain and Zofran prn for n/v. Will reassess after one hour. Addendum: 02/01/17 at 0304 by Ameya Bernal RN Correction:Charted to wrong patient
--- NOTE | 2017-01-31 22:00 | NUR ---
Rounds Pt is awake and resting quietly in bed. IVF and GTF are infusing well. Pt is tolerating GTF well. HOB remains elevated 45 degrees. No respiratory distress noted.
--- NOTE | 2017-01-31 23:55 | NUR ---
Report Report given to nurse Huo for continuity of pt's nursing care.
--- NOTE | 2017-02-01 | NUR ---
Assume Care Assume care with pt. Pt is awake at this time, non verbal. No s/s of ant pain or distress noted. Noted Picc line to MERLE no infiltrate and with good blood return. G tube is patent, running at 45 cc/hr, residual is 20cc noted. F/C is patent with 100cc clear yellow urine in the bag noted. Noted wound to sacrum, R ear and BLE, all dressings are intact. Call light within reach, will cont to monitor.
[2017-02-01 00:12] VITALS: BP_SYST 134
[2017-02-01] MEDS: INSULIN ASPART 100 UNITS/ML, 10 ML VIAL (NovoLOG) SUBCUT PRN ×4 (01:21→21:33)
--- NOTE | 2017-02-01 01:45 | NUR ---
Admin Dilaudid and Zofran Admin Dilaudid prn for pain and Reglan prn for N/V. Will reassess after one hour. Addendum: 02/01/17 at 0158 by Ameya Bernal RN Correction: Reglan for n/v. Addendum: 02/01/17 at 0304 by Ameya Bernal RN Correction:Charted to wrong patient
--- NOTE | 2017-02-01 03:04 | NUR ---
ECG bath ECG bath rendered. No s/s of any distress noted. Call light within reach, will cont to monitor. Addendum: 02/01/17 at 0647 by Ameya Bernal RN Correction: HCG bath
[2017-02-01 04:00] VITALS: BP_SYST 142
[2017-02-01] MEDS: D5/0.45 NS 1,000 ML IV SCH (05:26)
[2017-02-01] MEDS: metroNIDAZOLE 250 mg/NS 50 ML IV SCH ×3 (05:27→23:39)
[2017-02-01 06:28] LABS: BASOPHILS % (AUTO) 0.1 % (0.0-2.0); EOSINOPHILS # (AUTO) 1.4 K/uL (0.0-0.4); EOSINOPHILS % (AUTO) 9.2 % (0.0-4.0); LYMPHOCYTES # (AUTO) 0.9 K/uL (1.0-5.5); LYMPHOCYTES % (AUTO) 6.1 % (20.5-51.5); MEAN CORPUSCULAR HEMOGLOBIN 30 pg (27-31); MEAN CORPUSCULAR HGB CONC 34 % (32-36); MEAN CORPUSCULAR VOLUME 89 fL (79.0-98.0); MONOCYTES # (AUTO) 0.4 K/uL (0.0-1.0); MONOCYTES % (AUTO) 2.9 % (1.7-9.3); NEUTROPHILS # (AUTO) 12.2 K/uL (1.8-7.7); NEUTROPHILS % (AUTO) 81.7 % (40.0-70.0); PLATELET COUNT (AUTO) 230 K/uL (130-430); RED BLOOD CELL COUNT(AUTO) 3.72 MIL/uL (4.2-6.2); RED CELL DISTRIBUTION WIDTH 14.4 % (9.0-15.0); WHITE BLOOD COUNT (AUTO) 14.9 K/uL (4.8-10.8)
[2017-02-01 06:29] LABS: CALCIUM 7.4 mg/dL (8.4-11.0); CREATININE 1.05 mg/dL (0.55-1.30); POTASSIUM 3.1 mmol/L (3.5-5.1)
--- NOTE | 2017-02-01 06:41 | NUR ---
Final Rounds Patient is resting in bed at this time. No c/o pain or any distress noted. V/S are wnl. All needs met and anticipated by noc nurses. Bed in low position with call light within reach. Will cont to monitor.
[2017-02-01 08:00] VITALS: BP_SYST 150
[2017-02-01] MEDS: LACTULOSE 20 GM/30 ML UDC GT SCH ×2 (09:25→21:19)
[2017-02-01] MEDS: VANCOMYCIN HCL 125 MG CAPSULE PO SCH ×4 (09:26→21:23)
[2017-02-01] MEDS: LACTOBACILLUS RHAMNOSUS GG 1 CAP CAPSULE GT SCH ×2 (09:26→21:19)
[2017-02-01] MEDS: HEPARIN SODIUM,PORCINE 5000 UNITS/ML VIAL SUBCUT SCH ×2 (09:30→21:23)
[2017-02-01] MEDS: LINEZOLID 300 ML IV SCH ×2 (09:41→22:37)
[2017-02-01 12:20] VITALS: BP_SYST 157
[2017-02-01 16:49] VITALS: BP_SYST 146
[2017-02-01 19:30] VITALS: BP_SYST 140
--- NOTE | 2017-02-01 19:30 | NUR ---
notes received the pt from the day nurse,pt awake and follows with eyes but is non verbal and does not follow commandsg tube intact infusing well at45cc/hr.no residual noted.monitor in place and shows st..pt in isolation.russ catheter in place and draining well.iv intact to lt forearm,no redness or swelling noted.o2 via nc at 2l/min. in place.aspiration and fall precautions in place. picc line intact to lt upper arm,no redness or swelling noted.dressings to both lower extremities ,rt ear and coccyx dry and intact.call light within reach safety measures in progress.continue to monitor.
--- NOTE | 2017-02-01 21:30 | NUR ---
notes repositioned with pillow support,accucheck was 264,insulin per s/s given as ordered.g tube residual was 30cc,water 200cc given as ordered.call light within reach .continue to monitor.
--- NOTE | 2017-02-01 23:30 | NUR ---
notes pt incontinent of stool,chg bath given,pt repositioned with pillow support.continue to monitor.
--- NOTE | 2017-02-01 23:30 | NUR ---
notes pt incontinent of moderate liquid stool,pt cleaned and repositioned with pillow support,o2 via mask reapplied to pt.continue to monitor. Addendum: 02/02/17 at 0102 by Eliseo Rogers LVN notes made in error,wrong pt.
[2017-02-01] MEDS: IPRATROPIUM/ALBUTEROL SULFATE 3 ML AMPUL.NEB INH SCH (23:43)
[2017-02-02] VITALS: BP_SYST 140
[2017-02-02] MEDS: INSULIN ASPART 100 UNITS/ML, 10 ML VIAL (NovoLOG) SUBCUT PRN ×3 (00:49→14:20)
--- NOTE | 2017-02-02 01:31 | NUR ---
pt repositioned with pillow support.continue to monitor.
--- NOTE | 2017-02-02 03:31 | NUR ---
notes pt awaken and repositioned with pillow support.hob is up.continue to monitor.
[2017-02-02 04:00] VITALS: BP_SYST 127
[2017-02-02] MEDS: IPRATROPIUM/ALBUTEROL SULFATE 3 ML AMPUL.NEB INH SCH ×8 (04:12→23:31)
--- NOTE | 2017-02-02 04:50 | NUR ---
notes accucheck was 198,no insulin needed per s/s.continue to monitor.
[2017-02-02] MEDS: metroNIDAZOLE 250 mg/NS 50 ML IV SCH ×3 (05:12→22:00)
--- NOTE | 2017-02-02 06:08 | NUR ---
closing notes pt resting with eyes closed.will endorse the care of the pt to the day nurse.
[2017-02-02 06:18] LABS: CREATININE 0.97 mg/dL (0.55-1.30); POTASSIUM 3.2 mmol/L (3.5-5.1)
[2017-02-02 06:27] LABS: BASOPHILS % (AUTO) 0.2 % (0.0-2.0); EOSINOPHILS # (AUTO) 1.2 K/uL (0.0-0.4); EOSINOPHILS % (AUTO) 7.9 % (0.0-4.0); HEMATOCRIT 34.2 % (36-54); HEMOGLOBIN 11.2 g/dL (14.0-18.0); LYMPHOCYTES # (AUTO) 1.1 K/uL (1.0-5.5); LYMPHOCYTES % (AUTO) 7.3 % (20.5-51.5); MEAN CORPUSCULAR HEMOGLOBIN 29 pg (27-31); MEAN CORPUSCULAR HGB CONC 33 % (32-36); MEAN CORPUSCULAR VOLUME 89 fL (79.0-98.0); MONOCYTES # (AUTO) 0.5 K/uL (0.0-1.0); MONOCYTES % (AUTO) 3.7 % (1.7-9.3); NEUTROPHILS # (AUTO) 11.8 K/uL (1.8-7.7); NEUTROPHILS % (AUTO) 80.9 % (40.0-70.0); PLATELET COUNT (AUTO) 241 K/uL (130-430); RED BLOOD CELL COUNT(AUTO) 3.84 MIL/uL (4.2-6.2); RED CELL DISTRIBUTION WIDTH 14.4 % (9.0-15.0); WHITE BLOOD COUNT (AUTO) 14.6 K/uL (4.8-10.8)
[2017-02-02 08:00] VITALS: BP_SYST 138
--- NOTE | 2017-02-02 08:00 | NUR ---
OPENING NOTE RECEIVED REPORT FROM ELECTRO MECHANICAL DESIGNER NURSE. PATIENT RESTING COMFORTABLY, NON-VERBAL. NO NOTABLE SIGNS OF DISTRESS AT THIS THIS TIME. PAIN ASSESSED PER GRAY-ZAMAN SCALE. PATIENTS TUBE FEEDS ARE RUNNING PER MD ORDERS, IV RUNNING PER MD ORDERS. PATIENT HAS PICC LINE TO LEFT UPPER ARM. PATIENT POSITIONED WITH PILLOW SUPPORT AND ON A WINSTON MATTRESS. PATIENT HAS BED ALARM APPLIED, SIDE RAILS IN LOWEST POSITION, CALL LIGHT WITHIN REACH, AND BED IN LOWEST POSITION FOR SAFETY. WILL CONTINUE TO MONITOR PATIENT FOR CHANGES IN STATUS. Addendum: 02/02/17 at 1135 by Emily Cyr RN BED IN LOWEST POSITION, SIDE RAILS ARE UP FOR SAFETY. MISTYPE.
[2017-02-02] MEDS: LACTULOSE 20 GM/30 ML UDC GT SCH ×2 (09:00→20:52)
--- NOTE | 2017-02-02 10:04 | NUR ---
DISCHARGE PLANNING Faxed SNF referral to [phone]. will follow up. Addendum: 02/02/17 at 1458 by Yamileth Topete DP Spoke with Karely in admitting at [facility], facility accepted patient back and will have ISO bed available for patient discharge. Note left for weekend CM to follow up. contracted ambulance [facility] . Placed transportation packet in nurse station.
[2017-02-02] MEDS: VANCOMYCIN HCL 125 MG CAPSULE PO SCH ×4 (10:13→20:52)
[2017-02-02] MEDS: LINEZOLID 300 ML IV SCH ×2 (10:13→20:53)
[2017-02-02] MEDS: LACTOBACILLUS RHAMNOSUS GG 1 CAP CAPSULE GT SCH ×2 (10:13→20:52)
[2017-02-02] MEDS: D5/0.45 NS 1,000 ML IV SCH ×2 (10:17→10:37)
--- NOTE | 2017-02-02 10:30 | NUR ---
1000 NOTE PATIENT RESTING COMFORTABLY. NO NOTABLE SIGNS OF DISTRESS AT THIS THIS TIME. PAIN ASSESSED PER GRAY-ZAMAN SCALE. PATIENTS TUBE FEEDS ARE RUNNING PER MD ORDERS, TUBING WAS CHANGED FOR TUBE FEEDING. IV RUNNING PER MD ORDERS. PATIENT HAS PICC LINE TO LEFT UPPER ARM. PATIENT POSITIONED WITH PILLOW SUPPORT AND ON A WINSTON MATTRESS. PATIENT REPOSITIONED TO RIGHT SIDE. PATIENT HAD LARGE BOWEL MOVEMENT. LACTULOSE WAS HELD RELATED TO STOOL CONSISTENCY. PATIENT HAS BED ALARM APPLIED, SIDE RAILS IN LOWEST POSITION, CALL LIGHT WITHIN REACH, AND BED IN LOWEST POSITION FOR SAFETY. WILL CONTINUE TO MONITOR PATIENT FOR CHANGES IN STATUS. Addendum: 02/02/17 at 1134 by Emily Cyr RN BED IN LOWEST POSITION, SIDE RAILS ARE UP FOR SAFETY. MISTYPE.
[2017-02-02] MEDS: HEPARIN SODIUM,PORCINE 5000 UNITS/ML VIAL SUBCUT SCH ×2 (10:33→20:59)
[2017-02-02 12:00] VITALS: BP_SYST 150
--- NOTE | 2017-02-02 12:16 | NUR ---
1200 NOTE PATIENT RESTING COMFORTABLY, NON-VERBAL. NO NOTABLE SIGNS OF DISTRESS AT THIS THIS TIME. PAIN ASSESSED PER GRAY-ZAMAN SCALE, NO PAIN NOTED. PATIENT HAS A FLAT AFFECT. PATIENTS TUBE FEEDS ARE RUNNING PER MD ORDERS, IV RUNNING PER MD ORDERS. PATIENT HAS PICC LINE TO LEFT UPPER ARM. PATIENT POSITIONED WITH PILLOW SUPPORT AND ON A WINSTON MATTRESS. PATIENT HAS A WEN DRAINING TO GRAVITY. PATIENT HAS BED ALARM APPLIED, BED IS IN LOWEST POSITION, CALL LIGHT WITHIN REACH, AND SIDE RAILS ARE UP FOR SAFETY. WILL CONTINUE TO MONITOR PATIENT FOR CHANGES IN STATUS.
--- NOTE | 2017-02-02 13:44 | NUR ---
NOTE MINIMAL URINE OUTPUT SEEN IN WEN CATHETER DRAINAGE BAG. INSPECTED WEN CATHETER, WHITE SEDIMENT LIKE CLOG NOTED IN WEN TUBE. WEN CATHETER IRRIGATED WITH 60CC OF STERILE NORMAL SALINE 0.9%. OUTPUT OF 120ML AFTER IRRIGATION. WEN CATHETER IS NOW DRAINING. SOME LEAKING FROM AROUND THE CATHETER. 4 SATURATED CHUX PADS. WILL CONTINUE TO MONITOR, AND KEEP DRY.
[2017-02-02] MEDS: D5W 1,000 ML IV SCH (14:35)
[2017-02-02] MEDS ORDERED: MAGNESIUM SULFATE 1 GM/2 ML VIAL IVP ONE (15:30)
[2017-02-02 16:00] VITALS: BP_SYST 142
--- NOTE | 2017-02-02 16:49 | NUR ---
1600 NOTE PATIENT RESTING COMFORTABLY, YES/ NO ANSWERS ONLY. NO NOTABLE SIGNS OF DISTRESS AT THIS THIS TIME. PAIN ASSESSED PER GRAY-ZAMAN SCALE, NO PAIN NOTED. PATIENT HAS A FLAT AFFECT. PATIENTS TUBE FEEDS ARE RUNNING PER MD ORDERS, IV RUNNING PER MD ORDERS. PATIENT REPOSITIONED WITH PILLOW SUPPORT AND ON A WINSTON MATTRESS. PATIENT HAS A WEN DRAINING TO GRAVITY. PATIENT WOUND CARE COMPLETED TO BILATERAL HEELS; LEFT AVALOS; AND BUTTOCKS. PATIENT HAS BED ALARM APPLIED, BED IS IN LOWEST POSITION, CALL LIGHT WITHIN REACH, AND SIDE RAILS ARE UP FOR SAFETY. WILL CONTINUE TO MONITOR PATIENT FOR CHANGES IN STATUS.
--- NOTE | 2017-02-02 18:39 | NUR ---
1800/CLOSING NOTE WAITING TO GIVE REPORT TO VAT TENDER RN. PATIENT RESTING COMFORTABLY, YES/ NO ANSWERS ONLY. NO NOTABLE SIGNS OF DISTRESS AT THIS THIS TIME. PAIN ASSESSED PER GRAY-ZAMAN SCALE, NO PAIN NOTED. PATIENT HAS A FLAT AFFECT. PATIENTS TUBE FEEDS ARE RUNNING PER MD ORDERS, IV RUNNING PER MD ORDERS. PATIENT REPOSITIONED WITH PILLOW SUPPORT AND ON A WINSTON MATTRESS. PATIENT HAS A WEN DRAINING TO GRAVITY. ALL NEEDS ARE MET. PATIENT HAS BED ALARM APPLIED, BED IS IN LOWEST POSITION, CALL LIGHT WITHIN REACH, AND SIDE RAILS ARE UP FOR SAFETY. WILL CONTINUE TO MONITOR PATIENT FOR CHANGES IN STATUS.
[2017-02-02 19:30] VITALS: BP_SYST 148
--- NOTE | 2017-02-02 19:30 | NUR ---
INITIAL NOTES; -Pt is a/o x4, resting in bed. Pt denies any pain, sob,or acute distress. Saline suzanne- IV sites both rt and lt a/c #20,patent, no s/s any infiltration. All safety measures in place. Bed alarm in place, bed low position and side railsx2. Call light w/in reach. No visitor is at bedside. Discussed poc,all safety measures,not to get out by self, or if experiencing any pain,sob,or any distress to use call light to inform nurse, pt verbalized understanding. All safety measures in place. Call light w/in reach. Continue to monitor Addendum: 02/02/17 at 2031 by Kenneth Barth RN CORRECTION-CHARTING ON WRONG PT
--- NOTE | 2017-02-02 19:30 | NUR ---
INITIAL NOTES; -Pt is a/o x1, resting in bed. No s/s any pain, sob,or acute distress noted. Pt has 2 L n/c oxy continously. MERLE PICC site with 2 ports patent, drsg cdi. IV left f/a #22,patent, no s/s any infiltration. IVF D5W @ 40ml/hr. 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 G-tube feeding with 45ml/hr, pt tolerated well. Keep HOB greater than 30 degree entire time. All extremities contracted noted. DRsg cdi of ramone heels. Ramone ankles edema +2 pitting noted. Elevates ramone lower extremities all time. SCD ramone lower extremities. Air mattress in place. Orr catheter w/ gravity drains yellow urine output. Fall precaution in place. Bed alarm in place, bed low position and side railsx2. Call light w/in reach. No visitor is at bedside. Turned and repositioned and q 2 hrs prn. Thick mucus production, suctioning and prn. Unable to discuss poc, due to aloc, no family is available this time. All safety measures in place. Call light w/in reach. Continue to monitor pt. Addendum: 02/02/17 at 2032 by Kenneth Barth RN ADDITIONAL NOTES;CHARTING ON RIGHT PATIENT
[2017-02-02] MEDS: POTASSIUM CHLORIDE 10 MEQ TAB.PRT.SR PO PRN (20:52)
--- NOTE | 2017-02-02 20:52 | NUR ---
ROUNDS; RESIDUAL LESS THAN 10ML UPON ASPIRATION OF G-TUBE -Flushed well with 100ml water after gave all medications via G-tube and continuously same rate. -Pt is a/o x1, resting in bed. No s/s any pain, sob,or acute distress noted. Pt has 2 L n/c oxy continuously. MERLE PICC-patent, no s/s any infiltration noted. IVF D5W @ 40ml/hr. G-tube feeding with 45ml/hr. Keep HOB greater than 30 degree entire time. All safety measures in place. Call light /win reach. Continue to monitor pt.
--- NOTE | 2017-02-02 22:00 | NUR ---
ROUNDS; -Pt is a/o x1, resting in bed. No s/s any pain, sob,or acute distress noted. Pt has 2 L n/c oxy continuously. MERLE PICC-patent, no s/s any infiltration noted. IVF D5W @ 40ml/hr. G-tube feeding with 45ml/hr. Keep HOB greater than 30 degree entire time. Elevates zach lower extremities all time. SCD zach lower extremities. Air mattress in place. Orr catheter w/ gravity drains yellow urine output. Fall precaution in place. Bed alarm in place, bed low position and side railsx2. Call light w/in reach. No visitor is at bedside. Turned and repositioned and q 2hrs. All safety measures in place. Call light w/in reach. Continue to monitor pt.
[2017-02-03] VITALS (7 sets, daily range): BP systolic 136–175
--- NOTE | 2017-02-03 01:24 | NUR ---
ROUNDS; RESIDUAL LESS THAN 5ML UPON ASPIRATION OF G-TUBE AND BLOOD QCQSN=544,NO SSI COVERAGE. -Flushed well with 100ml water after gave all medications via G-tube and continuously same rate. -Pt awakes,resting in bed. No s/s any pain, sob,or acute distress noted. Pt has 2 L n/c oxy continuously. MERLE PICC-patent, no s/s any infiltration noted. Orr cath w/ gravity drains yellow w/ sediment output. IVF D5W @ 40ml/hr. G-tube feeding with 45ml/hr. Keep HOB greater than 30 degree entire time. All safety measures in place. Call light /win reach. Continue to monitor pt.
[2017-02-03] MEDS: IPRATROPIUM/ALBUTEROL SULFATE 3 ML AMPUL.NEB INH SCH ×6 (03:54→23:29)
--- NOTE | 2017-02-03 04:03 | NUR ---
ROUNDS; -Pt is resting in bed. No s/s any pain, sob,or acute distress noted. Pt has 2 L n/c oxy continuously. MERLE PICC-patent, no s/s any infiltration noted. Orr cath w/ gravity drains yellow w/ sediment output. IVF D5W @ 40ml/hr. G-tube feeding with 45ml/hr. Keep HOB greater than 30 degree entire time. All safety measures in place. Call light /win reach. Continue to monitor pt.
[2017-02-03] MEDS: metroNIDAZOLE 250 mg/NS 50 ML IV SCH ×3 (05:12→22:37)
[2017-02-03 06:47] LABS: BASOPHILS % (AUTO) 0.1 % (0.0-2.0); EOSINOPHILS # (AUTO) 1.4 K/uL (0.0-0.4); EOSINOPHILS % (AUTO) 9.4 % (0.0-4.0); HEMATOCRIT 32.2 % (36-54); LYMPHOCYTES # (AUTO) 0.9 K/uL (1.0-5.5); LYMPHOCYTES % (AUTO) 6.3 % (20.5-51.5); MEAN CORPUSCULAR HEMOGLOBIN 30 pg (27-31); MEAN CORPUSCULAR HGB CONC 34 % (32-36); MEAN CORPUSCULAR VOLUME 88 fL (79.0-98.0); MONOCYTES # (AUTO) 0.3 K/uL (0.0-1.0); MONOCYTES % (AUTO) 2.4 % (1.7-9.3); NEUTROPHILS # (AUTO) 11.9 K/uL (1.8-7.7); NEUTROPHILS % (AUTO) 81.8 % (40.0-70.0); PLATELET COUNT (AUTO) 254 K/uL (130-430); RED BLOOD CELL COUNT(AUTO) 3.67 MIL/uL (4.2-6.2); RED CELL DISTRIBUTION WIDTH 14.1 % (9.0-15.0); WHITE BLOOD COUNT (AUTO) 14.5 K/uL (4.8-10.8)
[2017-02-03 06:53] LABS: CALCIUM 8.1 mg/dL (8.4-11.0); CREATININE 0.84 mg/dL (0.55-1.30); POTASSIUM 3.1 mmol/L (3.5-5.1)
--- NOTE | 2017-02-03 07:18 | NUR ---
CLOSING NOTES; -Pt is resting in bed. No s/s any pain, sob,or acute distress noted. Pt has 2 L n/c oxy continuously. MERLE PICC-patent, no s/s any infiltration noted. Saline suzanne left f/a patent,drsg cdi. Orr cath w/ gravity drains yellow w/ sediment output. IVF D5W @ 40ml/hr. G-tube feeding with 45ml/hr. Keep HOB greater than 30 degree entire time. All safety measures in place. Call light /win reach. Will endorse to oncoming nurse to continue care.
--- NOTE | 2017-02-03 08:00 | NUR ---
INITIAL NOTE PT RESTING IN SEMI FOWLERS, EASY TO AROUSE, A/OX1, ABLE TO RESPOND WITH TIME, NO S/S OF DISTRESS, PAIN OR SOB, NASAL CANULA IN PLACE WITH 02 AT 2LITERS, IV TO LFA INTACT, SALINE LOCKED, MERLE PICC INTACT, INFUSING FLUIDS AT ORDERED RATE, NO S/S OF INFILTRATION NOTED, GTUBE FEEDING IN PLACE, 10ML RESIDUAL NOTED, SAFETY AND ISOLATION PRECAUTIONS IN PLACE, BD IN LOW POSITION AND LOCKED, CALL LIGHT WITHIN REACH, SIDE RAILS UP X2, BED ALARM ON, WILL FOLLOW UP
[2017-02-03] MEDS: POTASSIUM CHLORIDE 10 MEQ TAB.PRT.SR PO PRN (08:59)
[2017-02-03] MEDS: LACTOBACILLUS RHAMNOSUS GG 1 CAP CAPSULE GT SCH ×2 (08:59→20:55)
[2017-02-03] MEDS: VANCOMYCIN HCL 125 MG CAPSULE PO SCH ×4 (08:59→20:55)
[2017-02-03] MEDS: LINEZOLID 300 ML IV SCH ×2 (09:00→20:56)
[2017-02-03] MEDS: LACTULOSE 20 GM/30 ML UDC GT SCH ×2 (09:00→20:55)
[2017-02-03] MEDS: HEPARIN SODIUM,PORCINE 5000 UNITS/ML VIAL SUBCUT SCH ×2 (09:02→20:59)
[2017-02-03] MEDS: MORPHINE 2 MG/ML INJ. SYRINGE IVP PRN ×2 (09:08→16:36)
--- NOTE | 2017-02-03 09:15 | NUR ---
DR SYK ALEXANDER MD UPDATED ON PT STATUS AND MADE AWARE OF ELEVATED PB, MD STATED TO PAIN MEDICATE AND FOLLOW UP WITH BP
--- NOTE | 2017-02-03 10:00 | NUR ---
ROUNDS PT RESTING, EASY TO AROUSE, NO S/S OF DISTRESS OR PAIN, GTUBE FEEDING INFUSING AT ORDERED RATE, PT TOLERATING WELL, PT REPOSITIONED WITH MEDICAL RECORDS MANAGER, TO OPPOSITE SIDE WITH PILLOW SUPPORT TO LOWER EXTREMITIES AND BACK, HEELS FLOATING, SAFETY MEASURES IN PLACE, CALL LIGHT WITHIN REACH, WILL FOLLOW UP
--- NOTE | 2017-02-03 12:00 | NUR ---
ROUNDS PT AWAKE, EYES OPEN, GRANDPARENTS AT BEDSIDE, NO S/S OF ACUTE DISTRESS, FAMILY AND PATIENT UPDATED ON STATUS AND PLAN OF CARE, ACCUCHECK 202 COVERED PER SLIDING SCALE, SAFETY MEASURES IN PLACE, CALL LIGHT WITHIN REACH, WILL FOLLOW UP
[2017-02-03] MEDS: INSULIN ASPART 100 UNITS/ML, 10 ML VIAL (NovoLOG) SUBCUT PRN ×2 (12:28→20:58)
--- NOTE | 2017-02-03 13:50 | NUR ---
NUTRITION F/U Admitting Diagnosis Septic shock, moderate malnutrition Reviewed Pertinent Medical/Surgical Hx Patient Other Medical Record Family Member Medical History Comment: DM, stroke (August 2016 per pt's mother), renal insufficiency, transaminitis, dysphagia per MD notes Per MD notes 02/03/17: Enterococcus faceum, C diff colitis, CVA, DM-OOC, L heel stage 3 decub ulcer GT malfunction, severe anemia, DKA (resolved) Subjective Information Pt seen resting in bed, +nasal cannula at time of RD visit w/ TF infusing. Per RN, pt's GT was clogged this morning, she had to aspirate and pt had 5-10ml residual. Pt appeared to have some swelling in face and arms/hands. Pt's grandmother at bedside reported that pt has been residing at [facility] for the past 4-5 months after his stroke. Grandmother also stated that pt no longer eats anything by mouth. Per EMR, TF Intakes: 660 ml 02/02/17. Residuals: 10 ml 02/02/17. Abd is soft and distended w/ active bowel sounds. I/O: 60/670 (-610 ml) per 12 hours. pitting 2+ edema of bilateral foot, Left hand and right hand. Current TF regimen is appropriate. Pt is not appropriate for nutrition education. Current Diet Order/Nutrition Support Novasource Renal at 45 ml/hr, Free Water Flush: 100 ML Q6H via GT Patient/Significant Other Able To Verbalize Education Provided Not Indicated Pertinent Medications k-dur, zofran, lactulose, culturelle, colace, vancomycin, SSnovolog, levemir D5% IV 40ml/hr (163 calories) Pertinent Labs 02/03/17 K 3.1 L, BG 201 H, POC BG 163 H, Hgb 11 L, Hct 32 L, WBC 14.5 H, RBC 3.67 L Height (Feet) 5 feet Height (Inches) 5.00 inches Weight (Pounds) 139 pounds Weight (Calculated Kilograms) 63.677805 kilograms Patient Weight 63.049 kg Body Mass Index 23.13 kg/m2 Usual Weight 180 lbs %UBW 77 %IBW 102 [place]/Adjusted Body Weight IBW: 136 lb, 62 kg Recent Weight Change Yes - Possible 41 lb wt loss with 5 months; 23% severe wt change Weight Status Appropriate Gastrointestinal Symptoms None Last BM Feb 03, 2017 2x Difficulty With: Swallowing Chewing Food Allergies No Usual Diet At Home Glucerna 1.2 at 88 ml/hr x18 hours Skin Integrity Comment: Ritchie scale: 12 (02/02/17); per nursing notes, L heel: wound; posterior sacrum: redness; R ankle: dry scab; R ear: dry scab Estimated Energy Expenditure (kcals/day) 9787-7656 kcal/day (BEE x 1.2-1.5 CBW for sepsis) Estimated Protein Required (g/day) 95-126 gm/day (1.5-2 gm/kg CBW for sepsis) Estimated Fluid Required (l/day) 1.9-2.2 L/day (30-35 ml/kg CBW for maintenance) Problem/Etiology/Signs/Symptoms Inadequate nutritional intakes related to GT malfunction as evidenced by inability to provide EN via GT, and unable to meet optimal nutritional requirements. Expected Outcomes/Goals - Monitor provision of EN w/ goal of pt meeting at least 75% of estimated nutritional needs, labs trending WNL, normal GI function, and skin integrity/wt maintenance Dietitian Recommendations * Recommend continuing Novasource Renal at 45 ml/hr, Free Water Flush: 100 ML Q6H via GT Follow Up High Risk: F/U in 2-3days Follow Up By Feb 06, 2017 Alert Indicated Interpretation Of Weight Loss (Severe) >10% in 6 months Muscle Mass (Non-Severe) Mild Depletion (Moderate)
--- NOTE | 2017-02-03 14:00 | NUR ---
ROUNDS PT IN SEMI FOWLERS, LAYING TO SIDE, CALM, EVEN RISE AND FALL OF CHEST NOTED, MOTHER AT BEDSIDE, UPDATED ON PT STATUS AND PLAN OF CARE DISCUSSED, FAMILY VERBALIZED UNDERSTANDING, SAFETY MEASURES IN PLACE, BED IN LOW POSITION AND LOCKED, BED ALARM ON, WILL CONTINUE TO MONITOR
[2017-02-03] MEDS: D5W 1,000 ML IV SCH (14:12)
--- NOTE | 2017-02-03 16:01 | NUR ---
rounds pt laying in bed, mother at bedside, no s/s of distress or pain, iv fluids infusing at ordered rate, gtube feeding in place 10ml of residual noted and flushed with 200ml water flush, russ catheter in place and draining to gravity yellow urine with notable amount of sediment, russ flushed with water, will monitor urine output, safety measures in place, call light within reach, bed alarm on, will continue to monitor
--- NOTE | 2017-02-03 18:00 | NUR ---
DR SWANSON CALLED TO FOLLOW UP ON PATIENTS HIGH BLOOD PRESSURE, PAIN MEDICATION PROVIDED, PB REMAINED ELEVATED, MD MADE AWARE, MD PRESCRIBED LOPRESSOR 50MG BID, ONE DOSE NOW, ORDER NOTED AND CARRIED OUT MEDICATION ADMINISTERED, GTUBE FLUSHED WITH 200ML OF WATER, PT TOLERATED WELL, PT SLEEP NO S/S OF DISTRESS OR PAIN, EVEN RISE AND FALL OF CHEST NOTED, BREATHING UNLABORED, SAFETY MEASURES IN PLACE, BED IN LOW POSITION AND LOCKED, WILL FOLLOWUP
[2017-02-03] MEDS: METOPROLOL TARTRATE 50 MG TABLET PO SCH ×2 (18:07→20:56)
[2017-02-03] MEDS ORDERED: METOPROLOL TARTRATE 50 MG TABLET ONE (18:12)
--- NOTE | 2017-02-03 18:44 | NUR ---
CLOSING NOTE PT LAYING IN BED, RESTING , EVEN RISE AND FALL OF CHEST NOTED, NO S/S OF DISTRESS OR COMPLAINT OF PAIN, NASAL CANULA IN PLACE, NO SOB OR LABORED BREATHING NOTED, IV TO LFA SALINE LOCKED, MERLE PICC INTACT AND INFUSING FLUIDS AT ORDERED RATE, NO S/S OF INFILTRATION NOTED, GTUBE IN PLACE, WEN CATHETER IN PLACE AND DRAINING YELLOW CLOUDY URINE WITH SEDIMENT TO GRAVITY, DRESSING TO BILATERAL LOWER EXTREMITIES CLEAN DRY AND INTACT, ALL NEEDS ATTENDED TO THROUGH OUT SHIFT, SAFETY AND ISOLATION PRECAUTIONS MAINTAINED, BED IN LOW POSITION AND LOCKED, BED ALARM ON, WILL GIVE REPORT TO FOLLOW SHIFT.
--- NOTE | 2017-02-03 19:30 | NUR ---
OPENING NOTE Late entry due to pt. care. Pt. and bedside report received from day shift nurse. Pt. is AAO x 1 and resting in bed. Respirations are even and unlabored on 2l o2 nasal cannula. GT feeding infusing as ordered. Left upper arm PICC line noted infusing IVF as ordered. Left f/a 18g is dry intact and saline locked. Plan of care discussed. Safety, fall, aspiration and isolation precautions in place. Low airloss mattress present and working well. Bed alarm on. Call light to right hand. Will continue to monitor.
--- NOTE | 2017-02-03 19:43 | NUR ---
SPOKE TO DR. SWANSON REGARDING MEDS Reported to Dr. Swanson regarding pt.'s meds ordered PO if okay to give via GT. okayed. Will carry out.
--- NOTE | 2017-02-03 20:58 | NUR ---
ACCUCHECK/DUE MEDS Late entry due to pt. care. Pt.'s blood sugar 155. No insulin was given per sliding scale order. Due meds administered as ordered. Pt. tolerating TF well with 5mls of residuals noted. Safety, fall, isolation precautions in place. Bed alarm on. Low airloss mattress present and working well. Repositioned with pillows as support. Encouraged pt. to use call light for needs. Will continue to monitor.
--- NOTE | 2017-02-03 23:00 | NUR ---
WOUND CARE Late entry due to pt. care. Wound care, CHG, and incontinence care provided. Sacral wound cleansed with normal saline, hydrogel applied to pink wound area and zguard to christina wound. Sacral foam dressing dated and applied. Pt. tolerated well and denies any pain or discomfort at this time. Resumed gtube feeding as ordered. Greenish watery bowel movement noted on incontinence pad. Safety, fall and isolation precautions in place. Encouraged pt. to use call light for needs. Will continue to monitor.
--- NOTE | 2017-02-04 00:52 | NUR ---
ACCUCHECK Late entry due to pt. care. Pt.'s blood sugar 211. Pt. given insulin by THERESA Melara.
[2017-02-04] MEDS: INSULIN ASPART 100 UNITS/ML, 10 ML VIAL (NovoLOG) SUBCUT PRN ×4 (00:53→12:33)
[2017-02-04 01:17] VITALS: BP_SYST 151
--- NOTE | 2017-02-04 01:50 | NUR ---
TELE BATTERIES Batteries on tele monitor were changed. Pt. denies any pain or discomfort at this time. Safety, fall, and isolation precautions in place. Call light to right hand. Encouraged pt. to use call light for needs but unable to assess pt.'s response to teaching. Bed alarm on. Will continue to monitor.
--- NOTE | 2017-02-04 03:21 | NUR ---
TUBEFEEDING/BREATHING TX Tubefeeding and tubing changed. Pt. tolerating TF well with zero residuals noted. Pt. denies any pain or discomfort at this time. Pt. was able to verbalize "yes" and "no" when asked if he wanted a pillow to reposition his left arm. Currently receiving breathing tx. Safety fall and isolation precautions in place. Call light to right hand. Bed alarm on. Will continue to monitor.
[2017-02-04] MEDS: IPRATROPIUM/ALBUTEROL SULFATE 3 ML AMPUL.NEB INH SCH ×6 (03:28→23:00)
--- NOTE | 2017-02-04 05:00 | NUR ---
PICC LINE/INCONTINENCE AND SKIN CARE Late entry due to pt. care. PICC line dressing changed. Pt. tolerated well. Incontinence and skin care provided. Urine appeared on pt.'s incontinence pad. Confirmed to make sure russ catheter is secured and intact. Pt. denies any pain or discomfort at this time. Safety precautions in place. Call light to right hand. Will continue to monitor.
[2017-02-04] MEDS: metroNIDAZOLE 250 mg/NS 50 ML IV SCH ×3 (05:17→20:59)
[2017-02-04 06:34] VITALS: BP_SYST 132
[2017-02-04 07:01] LABS: BASOPHILS % (AUTO) 0.2 % (0.0-2.0); EOSINOPHILS # (AUTO) 1.2 K/uL (0.0-0.4); EOSINOPHILS % (AUTO) 8.5 % (0.0-4.0); HEMATOCRIT 32.7 % (36-54); HEMOGLOBIN 10.8 g/dL (14.0-18.0); LYMPHOCYTES # (AUTO) 0.8 K/uL (1.0-5.5); LYMPHOCYTES % (AUTO) 5.6 % (20.5-51.5); MEAN CORPUSCULAR HEMOGLOBIN 29 pg (27-31); MEAN CORPUSCULAR HGB CONC 33 % (32-36); MEAN CORPUSCULAR VOLUME 88 fL (79.0-98.0); MONOCYTES # (AUTO) 0.4 K/uL (0.0-1.0); MONOCYTES % (AUTO) 2.7 % (1.7-9.3); NEUTROPHILS # (AUTO) 11.6 K/uL (1.8-7.7); PLATELET COUNT (AUTO) 267 K/uL (130-430); RED CELL DISTRIBUTION WIDTH 13.8 % (9.0-15.0)
[2017-02-04 07:18] LABS: CALCIUM 7.9 mg/dL (8.4-11.0); CREATININE 0.84 mg/dL (0.55-1.30); POTASSIUM 3.5 mmol/L (3.5-5.1)
--- NOTE | 2017-02-04 07:42 | NUR ---
CLOSING NOTES All needs met throughout shift. Pt. is stable with no s/s of acute distress. Pt. currently receiving breathing tx. Safety, fall, isolation, aspiration precautions maintained throughout shift. Report given and care endorsed to day shift nurse.
--- NOTE | 2017-02-04 07:58 | NUR ---
INITIAL NOTE PT AWAKE, A/O X1, ABLE TO RESPOND VERBALLY, NASAL CANULA IN PLACE WITH O2 AT 2LITERS, RECEIVING BREATHING TREATMENT AT THIS TIME, MERLE PICC INTACT AND INFUSING FLUIDS AT ORDERED RATE, GTUBE FEEDING IN PLACE AND FEEDING ON ORDERED, WEN CATHETER IN PLACE, DRAINING YELLOW CLOUDY URINE TO GRAVITY, PT ON WINSTON MATTRESS, SAFETY AND ISOLATION PRECAUTIONS IN PLACE, CALL LIGHT WITHIN REACH, BED IN LOW POSITION AND LOCKED, WILL FOLLOW UP
[2017-02-04 08:00] VITALS: BP_SYST 138
[2017-02-04] MEDS: LACTOBACILLUS RHAMNOSUS GG 1 CAP CAPSULE GT SCH ×2 (08:35→20:23)
[2017-02-04] MEDS: LACTULOSE 20 GM/30 ML UDC GT SCH ×2 (08:35→20:23)
[2017-02-04] MEDS: LINEZOLID 300 ML IV SCH ×2 (08:36→20:24)
[2017-02-04] MEDS: VANCOMYCIN HCL 125 MG CAPSULE PO SCH ×4 (08:36→20:25)
[2017-02-04] MEDS: METOPROLOL TARTRATE 50 MG TABLET PO SCH ×2 (08:38→20:25)
[2017-02-04] MEDS: HEPARIN SODIUM,PORCINE 5000 UNITS/ML VIAL SUBCUT SCH ×2 (08:41→20:28)
--- NOTE | 2017-02-04 09:00 | NUR ---
DR SWANSON MAKING ROUNDS, NEW ORDER RECEIVED FOR DISCHARGE, WILL FOLLOW UP WITH CASE MANAGEMENT
--- NOTE | 2017-02-04 11:00 | NUR ---
CM DC PLANNING: [facility] RET[facility] TODAY; TIME REQUESTED FOR ADMIT WAS 1700. AMBULANCE ARRANGED WITH [facility] FOR PICK-UP AT 1630; REC'D CALL FROM [facility] AROUND THAT TIME STATING AMB PICK-UP WOULD BE 60-90 MINUTES DELAYED; NURSING NOTIFIED VIA UNIT SEC/HUMAIRA; AND, CM CONTACTED SNF TO INFORM OF DELAY WELL.
--- NOTE | 2017-02-04 11:30 | NUR ---
PER CASE MANAGEMENT, PT IS TO BE DISCHARGED BACK TO [facility]OM 117A, [facility] CONTRACT ENGINEER AT 1630, FAMILY AWARE PER MIREYA, WILL START TRANSITION OF CARE PAPERWORK AND FOLLOW UP
[2017-02-04 11:44] VITALS: BP_SYST 158
--- NOTE | 2017-02-04 12:00 | NUR ---
ACCUCHECK 231, 2 UNITS GIVEN PER SLIDING SCALE, PT AWAKE, ALERT, ABLE TO MAKE NEEDS KNOWN, GTUBE FEEDING INFUSING AT ORDERED RATE, 10 ML RESIDUAL NOTED, IV INFUSING TO MERLE PICC AT ORDERED RATE, PT REPOSITIONED WITH CUSTOMER ORDER CLERK ASSISTANCE TO OPPOSITE SIDE WITH PILLOW SUPPORT TO BACK AND BILATERAL LOWER EXTREMITIES, SAFETY MEASURES IN PLACE, WILL CONTINUE TO MONITOR
--- NOTE | 2017-02-04 14:00 | NUR ---
IV ANTIBIOTIC ADMINISTRATION PT RESTING, EASY TO AROUSE, NO S/S OF DISTRESS OR PAIN, IV SITE PATENT AND INTACT, FLAGYL HANGED AND INFUSING AT ORDER RATE, NO S/S OF INFILTRATION NOTED, SAFETY MEASURES IN PLACE, WILL CONTINUE TO MONITOR
[2017-02-04] MEDS: D5W 1,000 ML IV SCH (14:15)
--- NOTE | 2017-02-04 15:30 | NUR ---
WOUND CARE AND REPOSITIONING DRESSINGS CHANGED TO BILATERAL HEELS, LEFT AVALOS, SACRUM. WOUNDS CLEANSED WITH NORMAL SALINE, PAT DRY, ZGAURD APPLIED TO PERIWOUND AND HYDROGEL TO WOUND BED, PT REPOSITIONED TO OPPOSITE SIDE WITH PILLOW SUPPORT TO BACK AND BILATERAL LOWER EXTREMITIES, GTUBE FEEDING STOPPED DUE TO DISCHARGE IN ONE HOUR, IV FLUIDS INFUSING, WEN CATHETER IN PLACE AND DRAINING TO GRAVITY, URINE CLOUDY WITH SEDIMENT, SAFETY AND ISOLATION PRECAUTIONS IN PLACE, WILL FOLLOW UP
[2017-02-04 16:05] VITALS: BP_SYST 153
[2017-02-04 16:07] VITALS: BP_SYST 153
--- NOTE | 2017-02-04 17:00 | NUR ---
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
[2017-02-04] MEDS ORDERED: DEXTROSE 50% JECT 50 ML DISP.SYRIN IVP ONE (18:15)
--- NOTE | 2017-02-04 18:15 | NUR ---
DR SWANSON AWARE OF PT BLOOD SUGAR, MOST RECENT 54, MD ORDERED DEXTROSE SYRINGE 50ML ONE TIME DOSE, WILL ADMINISTER AND CONTINUE TO MONITOR PATIENT PT IS AWAKE, EYES OPEN, ABLE TO RESPOND, NO S/S OF DISTRESS, SAFETY MEASURES IN PLACE, CALL LIGHT WITHIN REACH, WILL CONTINUE TO MONITOR
[2017-02-04] MEDS ORDERED: DEXTROSE 50% JECT 50 ML DISP.SYRIN ONE (18:23)
--- NOTE | 2017-02-04 18:24 | NUR ---
[facility] Spoke with Kris regarding patient pick-up for transfer to [facility]. Arranged pick-up time ETA for 1999. Addendum: 02/04/17 at 1839 by Jamshid Tovar DE/ Received call from Kris. 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 Cancelled pick-up with [facility]. Called [facility] ambulance to un-cancel pick-up. ETA arrival between [id number].
--- NOTE | 2017-02-04 18:52 | NUR ---
Picc dressing changed 02/03/17 per security shift supervisor alisia goldsmith Addendum: 02/04/17 at 1853 by Aga Martínez RN Amended: Links added.
--- NOTE | 2017-02-04 19:00 | NUR ---
CLOSING NOTE PT AWAKE, EYES OPEN, ABLE TO RESPOND, NASAL CANULA IN PLACE, IV FLUIDS INFUSING TO MERLE PICC, NO S/S OF INFILTRATION NOTED, GTUBE IN PLACE, WEN CATHETER IN PLACE AND DRAINING CLEAR YELLOW URINE TO GRAVITY, URINE CLOUDY WITH SEDIMENT, WILL REPORT TO RN TO MONITOR OUTPUT, ALL DRESSING TO WOUNDS CLEAN DRY AND INTACT, ALL NEEDS ATTENDED TO THROUGH OUT SHIFT, SAFETY AND ISOLATION PRECAUTIONS MAINTAINED, BED IN LOW POSITION AND LOCKED, CALL LIGHT WITHIN REACH, WILL GIVE REPORT TO FOLLOWING SHIFT.
--- NOTE | 2017-02-04 21:50 | NUR ---
PAGED: I PAGED [facility] @ 1334 I SPOKE WITH YAZ WE PUT [facility] ON WILL CALL COLLECTION SUPPORT SPECIALIST REFUSED TO TAKE PATIENT BECAUSE OF HIGH B/P I CALLED DR. SWANSON HE GAVE MEDICATION ORDER TO RN IN CHARGE OF THIS PATIENT.
[2017-02-04] MEDS ORDERED: cloNIDine HCL 0.2 MG TABLET GT SCH (22:00)
[2017-02-05] MEDS: IPRATROPIUM/ALBUTEROL SULFATE 3 ML AMPUL.NEB INH SCH (03:00)
--- NOTE | 2017-02-05 05:19 | NUR ---
pt.transferred to the facility [facility].i have conveyed report to nadeen.pt.assigned to room:[facility]. pt.transfer delayed as of 02/04/17.pt.presented elevated b/p.178/102. apprised of the b/p elevation. ordered clonidine:0.2mg j-tube.blood glucose was assessed:78mg/dl.i administered 2 cups:orange juice. the b/p was assessed @0000:148/78the blood glucose:90.i resumed thye iv fluids:d5w and the feeding:novasource. i assessed the tp.this am:0430a:the b/p 144/90 blood glucose:90 mg/dl.i administered orange jice and administered lopressor:50mg 0900 am dose.p/t the pt's transfer. pt.transferred in stable condition. ordered the transfered hold until:02/05/17.
[2017-02-05] MEDS ORDERED: cloNIDine HCL 0.2 MG TABLET PO PRN (10:00)
[2017-02-05] MEDS ORDERED: HYDROCHLOROTHIAZIDE 25 MG TABLET (HCTZ) PO ONE (10:15)
[2017-02-06] MEDS ORDERED: HYDROCHLOROTHIAZIDE 25 MG TABLET (HCTZ) PO SCH (09:00)
== END 2017-02-05 05:11 | DRG 252 ==
LOC: SED 10:32 → SIC 12:25 → STU 01-31 17:50
PROVIDERS: ADMIT General Practice; ATTEND Family Medicine
PROC: 02HV33Z Insertion of Infusion Device into Superior Vena Cava, Percutaneous Approach (ICD-10-PCS; 2017-01-28)
PROC: B548ZZA Ultrasonography of Superior Vena Cava, Guidance (ICD-10-PCS; 2017-01-28)
PROC: 0D20XUZ Change Feeding Device in Upper Intestinal Tract, External Approach (ICD-10-PCS; principal; 2017-01-30)
PROC: 30233N1 Transfusion of Nonautologous Red Blood Cells into Peripheral Vein, Percutaneous Approach (ICD-10-PCS; 2017-01-30)
DX: K94.23 Gastrostomy malfunction (principal); N17.0 Acute kidney failure with tubular necrosis; J96.01 Acute respiratory failure with hypoxia; R65.21 Severe sepsis with septic shock; J69.0 Pneumonitis due to inhalation of food and vomit; A41.9 Sepsis, unspecified organism; G93.40 Encephalopathy, unspecified; E13.10 Other specified diabetes mellitus with ketoacidosis without coma; K31.6 Fistula of stomach and duodenum; A04.7 Enterocolitis due to Clostridium difficile; Z66 Do not resuscitate; E44.0 Moderate protein-calorie malnutrition; L89.623 Pressure ulcer of left heel, stage 3; L89.159 Pressure ulcer of sacral region, unspecified stage; E86.9 Volume depletion, unspecified; E87.5 Hyperkalemia; G81.90 Hemiplegia, unspecified affecting unspecified side; I12.9 Hypertensive chronic kidney disease with stage 1 through stage 4 chronic kidney disease, or unspecified chronic kidney disease; N39.0 Urinary tract infection, site not specified; N18.9 Chronic kidney disease, unspecified; K75.9 Inflammatory liver disease, unspecified; B95.2 Enterococcus as the cause of diseases classified elsewhere; Z16.21 Resistance to vancomycin; Y83.3 Surgical operation with formation of external stoma as the cause of abnormal reaction of the patient, or of later complication, without mention of misadventure at the time of the procedure; E87.0 Hyperosmolality and hypernatremia; D63.8 Anemia in other chronic diseases classified elsewhere; E13.22 Other specified diabetes mellitus with diabetic chronic kidney disease; E13.65 Other specified diabetes mellitus with hyperglycemia; Z74.01 Bed confinement status; Z86.73 Personal history of transient ischemic attack (TIA), and cerebral infarction without residual deficits
CPT/HCPCS: 36415; 36600; 71010; 74000-TC; 74240-TC; 76700-TC; 80048; 80053; 81000-TC; 82150-TC; 82435-TC; 82570-TC; 82803-TC; 82962; 83036; 83605; 83690-TC; 83735-TC; 83880; 84100-TC; 84302-TC; 84436; 84439; 84443-TC; 84480; 84484; 85007; 85025; 85027; 85610-TC; 85730-TC; 86886; 86900; 86901; 86920; 87040-TC; 87070-TC; 87081; 87086; 87186-TC; 87230-TC; 93005; 94640; 94760; 96361; 96365; 96375; 99291; A6209; C1751; J1644; J1815; J2020; J2270; J2405; J2543; J2930; J3370; J3475; J3480; J3490; J7030; J7040; J7050; J7060; P9021; Q9963